=== PATIENT | male | born 1965 | race Two or more races ===

== ENCOUNTER 2016-09-12 12:03 | Emergency (ER) | payer MEDICARE, MEDICAID ==
[2016-09-12 12:20] VITALS: BP 134/92
--- NOTE | 2016-09-12 12:35 | EDM.PDOC ---
ED HPI GENERAL MEDICAL PROBLEM - General Chief Complaint: General Stated Complaint: COLD/COUGH Time Seen by Provider: 09/12/16 12:05 Source of Information: Reports: Patient History Limitations: Reports: No limitations - History of Present Illness INITIAL COMMENTS - FREE TEXT/NARRATIVE: History of present illness: [] Patient's had one day of coughing and body aches. He had similar symptoms last month the last couple weeks but then resolved. 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 Patient says he uses a mask while working. He denies any fevers or chills or any other symptoms. She has only been taking an allergy medicine he has an inhaler but has not used it. Review of systems: As per history of present illness and below otherwise all systems reviewed and negative. Past medical history: As per history of present illness and as reviewed below otherwise noncontributory. Surgical history: As per history of present illness and as reviewed below otherwise noncontributory. Social history: No reported history of drug or alcohol abuse. Family history: As per history of present illness and as reviewed below otherwise noncontributory. Physical exam: General: Well developed, well nourished in NAD HEENT: Atraumatic, normocephalic, pupils reactive, negative for conjunctival pallor or scleral icterus, mucous membranes moist, throat clear, neck supple, nontender, trachea midline. Lungs: Clear to auscultation, breath sounds equal bilaterally, chest nontender. No wheezing, guide or accessory muscle use Heart: S1S2, regular, negative for clicks, rubs, or JVD. Abdomen: Soft, nondistended, nontender. Negative for masses or hepatosplenomegaly. Negative for costovertebral tenderness. Pelvis: Stable nontender. Genitourinary: Deferred. Rectal: Deferred. Extremities: Atraumatic, negative for cords or calf pain. Neurovascular unremarkable. Neuro: Awake, alert, oriented. Cranial nerves II through XII unremarkable. Cerebellum unremarkable. Motor and sensory unremarkable throughout. Exam nonfocal. Diagnostics: [] Exam is normal no signs are normal Therapeutics: [] Impression: [] Viral URI Plan: [] Motrin for body aches, use her inhaler for cough and followup with primary care physician as needed. Definitive disposition and diagnosis as appropriate pending reevaluation and review of above. generalized pain Pain Score (Numeric/FACES): 8 - Related Data Allergies Allergy/AdvReac Type Severity Reaction Status Date / Time No Known Allergies Allergy Verified 09/12/16 12:20 Home Meds: Home Meds Gabapentin [Neurontin] 600 mg PO TID 12/02/13 [History] Insulin Regular, Human [NovoLIN R] 0 unit SQ WMBED 12/02/13 [History] Lisinopril 40 mg PO DAILY 12/02/13 [History] Methylphenidate HCl [Methylphenidate SR] 20 mg PO DAILY 12/02/13 [History] Morphine Sulfate [Morphine Sulfate ER] 60 mg PO BID 12/02/13 [History] Omeprazole 40 mg PO BIDAC 12/02/13 [History] oxyCODONE HCl/Acetaminophen [oxyCODONE-Acetaminophen 5-325] 1 tab PO Q4H PRN [History] Hydrochlorothiazide 12.5 mg PO DAILY 03/26/16 [History] metFORMIN [Glucophage XR] 500 mg PO BIDMEALS 03/26/16 [History] Past Medical History HEENT History: Reports: None Cardiovascular History: Reports: High cholesterol, Hypertension Respiratory History: Reports: Pneumonia, recurrent Gastrointestinal History: Reports: None Genitourinary History: Reports: None Musculoskeletal History: Reports: Arthritis, Back pain, chronic, Other (see below) Other Musculoskeletal History: Chronic pain Neurological History: Reports: Neuropathy, diabetic Psychiatric History: Reports: None Endocrine/Metabolic History: Reports: Diabetes, type II Hematologic History: Reports: None Immunologic History: Reports: None Oncologic (Cancer) History: Reports: None Dermatologic History: Reports: Cellulitis - Infectious Disease History Infectious Disease History: Reports: None - Past Surgical History Head Surgeries/Procedures: Reports: None HEENT Surgical History: Reports: None Cardiovascular Surgical History: Reports: Vascular surgery Respiratory Surgical History: Reports: None GI Surgical History: Reports: None Male Surgical History: Reports: None Endocrine Surgical History: Reports: None Neurological Surgical History: Reports: None Musculoskeletal Surgical History: Reports: Other (see below) Other Musculoskeletal Surgeries/Procedures:: Bilateral arms, legs Dermatological Surgical History: Reports: None Social & Family History - Family History Family Medical History: Noncontributory - Tobacco Use Smoking Status *Q: Current Some Day Smoker Years of Tobacco use: 8 Packs/Tins Daily: 0.1 Second Hand Smoke Exposure: Yes - Caffeine Use Caffeine Use: Reports: Coffee Other Caffeine Use: 1 cup every other day - Alcohol Use Days Per Week of Alcohol Use: 0 - Recreational Drug Use Recreational Drug Use: No ED ROS GENERAL - Review of Systems Review Of Systems: See Below (See history of present illness) ED EXAM, GENERAL - Physical Exam Exam: See Below (See history of present illness) Course - Vital Signs Last Recorded V/S: Last Vital Signs Temp 36.4 C 09/12/16 12:15 Pulse 77 09/12/16 12:15 Resp 16 09/12/16 12:15 BP 134/92 H 09/12/16 12:15 Pulse Ox 97 09/12/16 12:15 Departure - Departure Time of Disposition: 12:34 Disposition: Home, Self-Care 01 Condition: good Clinical Impression: Viral URI - Discharge Information Forms: ED Department Discharge Additional Instructions: The following information is given to patients seen in the emergency department who are being discharged to home. This information is to outline your options for follow-up care. We provide all patients seen in our emergency department with a follow-up referral. The need for follow-up, as well as the timing and circumstances, are variable depending upon the specifics of your emergency department visit. If you don't have a primary care physician on staff, we will provide you with a referral. We always advise you to contact your personal physician following an emergency department visit to inform them of the circumstance of the visit and for follow-up with them and/or the need for any referrals to a consulting specialist. The emergency department will also refer you to a specialist when appropriate. This referral assures that you have the opportunity for follow-up care with a specialist. All of these measure are taken in an effort to provide you with optimal care, which includes your follow-up. Under all circumstances we always encourage you to contact your private physician who remains a resource for coordinating your care. When calling for follow-up care, please make the office aware that this follow-up is from your recent emergency room visit. If for any reason you are refused follow-up, please contact the [facility] Emergency Department at and asked to speak to the emergency department charge nurse. Take Motrin for body aches, increase fluids and use her inhaler for cough. Followup with primary care physician as needed [facility] [address] [place] [phone]
== END 2016-09-12 12:44 | disposition home or self-care (01) ==
LOC: MW.ED 12:03
DX: J06.9 Acute upper respiratory infection, unspecified (principal); E78.00 Pure hypercholesterolemia, unspecified; I10 Essential (primary) hypertension; M19.90 Unspecified osteoarthritis, unspecified site; E11.40 Type 2 diabetes mellitus with diabetic neuropathy, unspecified; F17.210 Nicotine dependence, cigarettes, uncomplicated; Z87.01 Personal history of pneumonia (recurrent); Z79.899 Other long term (current) drug therapy; Z79.4 Long term (current) use of insulin; Z79.84 Long term (current) use of oral hypoglycemic drugs
CPT/HCPCS: 99282

== ENCOUNTER 2016-12-22 12:28 | Emergency (ER) | payer MEDICARE, MEDICAID ==
--- NOTE | 2016-12-22 12:47 | EDM.PDOC ---
ED HPI GENERAL MEDICAL PROBLEM - General Chief Complaint: Respiratory Problem Stated Complaint: COUGHING Time Seen by Provider: 12/22/16 12:46 Source of Information: Reports: Patient - History of Present Illness INITIAL COMMENTS - FREE TEXT/NARRATIVE: HISTORY AND PHYSICAL: History of present illness: Patient with productive cough for 2 weeks increasing in severity no fever nausea vomiting chills sweats, no chest pain shortness breath headache dizziness palpitation about a urine symptoms Review of systems: As per history of present illness and below otherwise all systems reviewed and negative. Past medical history: As per history of present illness and as reviewed below otherwise noncontributory. Surgical history: As per history of present illness and as reviewed below otherwise noncontributory. Social history: No reported history of drug or alcohol abuse. Family history: As per history of present illness and as reviewed below otherwise noncontributory. Physical exam: HEENT: Atraumatic, normocephalic, pupils reactive, negative for conjunctival pallor or scleral icterus, mucous membranes moist, throat clear, neck supple, nontender, trachea midline. Lungs: Clear to auscultation, breath sounds equal bilaterally, chest nontender. Heart: S1S2, regular, negative for clicks, rubs, or JVD. Abdomen: Soft, nondistended, nontender. Negative for masses or hepatosplenomegaly. Negative for costovertebral tenderness. Pelvis: Stable nontender. Genitourinary: Deferred. Rectal: Deferred. Extremities: Atraumatic, negative for cords or calf pain. Neurovascular unremarkable. Neuro: Awake, alert, oriented. Cranial nerves II through XII unremarkable. Cerebellum unremarkable. Motor and sensory unremarkable throughout. Exam nonfocal. Diagnostics: []Chest 2 views Therapeutics: []Z-Kyle 250 mg dosing HFA Impression: []Acute bronchitis Definitive disposition and diagnosis as appropriate pending reevaluation and review of above. Generalized Pain Score (Numeric/FACES): 5 - Related Data Allergies Allergy/AdvReac Type Severity Reaction Status Date / Time No Known Allergies Allergy Verified 12/22/16 12:37 Home Meds: Home Meds Gabapentin [Neurontin] 600 mg PO TID 12/02/13 [History] Insulin Regular, Human [NovoLIN R] 0 unit SQ WMBED 12/02/13 [History] Lisinopril 40 mg PO DAILY 12/02/13 [History] Methylphenidate HCl [Methylphenidate SR] 20 mg PO DAILY 12/02/13 [History] Morphine Sulfate [Morphine Sulfate ER] 60 mg PO BID 12/02/13 [History] Omeprazole 40 mg PO BIDAC 12/02/13 [History] oxyCODONE HCl/Acetaminophen [oxyCODONE-Acetaminophen 5-325] 1 tab PO Q4H PRN [History] Hydrochlorothiazide 12.5 mg PO DAILY 03/26/16 [History] metFORMIN [Glucophage XR] 500 mg PO BIDMEALS 03/26/16 [History] Past Medical History HEENT History: Reports: None Cardiovascular History: Reports: High Cholesterol, Hypertension Respiratory History: Reports: Pneumonia, Recurrent Gastrointestinal History: Reports: None Genitourinary History: Reports: None Musculoskeletal History: Reports: Arthritis, Back Pain, Chronic Other Musculoskeletal History: Chronic pain Neurological History: Reports: Neuropathy, Diabetic Psychiatric History: Reports: None Endocrine/Metabolic History: Reports: Diabetes, Type II Hematologic History: Reports: None Immunologic History: Reports: None Oncologic (Cancer) History: Reports: None Dermatologic History: Reports: Cellulitis - Infectious Disease History Infectious Disease History: Reports: None - Past Surgical History Head Surgeries/Procedures: Reports: None HEENT Surgical History: Reports: None Cardiovascular Surgical History: Reports: Vascular Surgery GI Surgical History: Reports: None Male Surgical History: Reports: None Musculoskeletal Surgical History: Reports: Other (See Below) Other Musculoskeletal Surgeries/Procedures:: Hx of 32 sugeries, titanium in bilateral knees Dermatological Surgical History: Reports: None Social & Family History - Family History Family Medical History: Noncontributory - Tobacco Use Smoking Status *Q: Never Smoker Years of Tobacco use: 8 Packs/Tins Daily: 0.1 Second Hand Smoke Exposure: Yes - Caffeine Use Caffeine Use: Reports: None Other Caffeine Use: 1 cup every other day - Alcohol Use Days Per Week of Alcohol Use: 0 - Recreational Drug Use Recreational Drug Use: No ED ROS GENERAL - Review of Systems Review Of Systems: ROS reveals no pertinent complaints other than HPI. ED EXAM, GENERAL - Physical Exam Exam: See Below Course - Vital Signs Last Recorded V/S: Last Vital Signs Temp 36.2 C 12/22/16 12:40 Pulse 72 12/22/16 12:40 Resp 16 12/22/16 12:40 BP 140/94 H 12/22/16 12:40 Pulse Ox 94 L 12/22/16 12:40 - Orders/Labs/Meds Orders: Active Orders 24 hr Category Date Time Status Chest 2V [CR] Stat Exams 12/22/16 12:41 Taken Departure - Departure Time of Disposition: 14:22 Disposition: Home, Self-Care 01 Condition: Good Clinical Impression: Acute bronchitis - Discharge Information Forms: ED Department Discharge Additional Instructions: Medication as prescribed Return if symptoms persist or worsen Follow-up with primary care as needed The following information is given to patients seen in the emergency department who are being discharged to home. This information is to outline your options for follow-up care. We provide all patients seen in our emergency department with a follow-up referral. The need for follow-up, as well as the timing and circumstances, are variable depending upon the specifics of your emergency department visit. If you don't have a primary care physician on staff, we will provide you with a referral. We always advise you to contact your personal physician following an emergency department visit to inform them of the circumstance of the visit and for follow-up with them and/or the need for any referrals to a consulting specialist. The emergency department will also refer you to a specialist when appropriate. This referral assures that you have the opportunity for follow-up care with a specialist. All of these measure are taken in an effort to provide you with optimal care, which includes your follow-up. Under all circumstances we always encourage you to contact your private physician who remains a resource for coordinating your care. When calling for follow-up care, please make the office aware that this follow-up is from your recent emergency room visit. If for any reason you are refused follow-up, please contact the [facility] emergency department at and asked to speak to the emergency department charge nurse. - My Orders Last 24 Hours: My Active Orders 12/22/16 12:41 Chest 2V [CR] Stat - Assessment/Plan Last 24 Hours: My Active Orders 12/22/16 12:41 Chest 2V [CR] Stat
[2016-12-22 14:41] VITALS: BP 141/86
--- NOTE | 2016-12-24 14:52 | CR ---
EXAM DATE: 12/22/16 PATIENT'S AGE: 50 Patient: ENIO RICO Facility: [place], [place] Site . Site : 1965 Study: XRay Chest [id number]/19/2017 1:01:10 PM Ordering Physician: Jacinta Liz Final Report: Indication: Pain, shortness of breath. Comparison: None. Findings: The bony thorax and soft tissue structures are intact. Mild thoracic aortic ectasia is noted. The cardiac and mediastinal silhouettes are otherwise normal. The pulmonary vascular is normal. The lungs are free of infiltrate and there are no pleural effusions. Impression: No active pulmonary disease. Dictated by Maude Aguirre MD @ Dec 22 2016 1:04PM (Electronic Signature) Report Signed by Proxy. [facility] Luis
== END 2016-12-22 14:35 | disposition home or self-care (01) ==
LOC: MW.ED 12:28
DX: J20.9 Acute bronchitis, unspecified (principal); E78.00 Pure hypercholesterolemia, unspecified; I10 Essential (primary) hypertension; E11.40 Type 2 diabetes mellitus with diabetic neuropathy, unspecified; Z79.4 Long term (current) use of insulin; Z79.84 Long term (current) use of oral hypoglycemic drugs; Z79.899 Other long term (current) drug therapy; Z87.01 Personal history of pneumonia (recurrent)
CPT/HCPCS: 71020; 71020-26; 99282; 99283

== ENCOUNTER 2017-11-08 16:40 | Observation (INO) | payer MEDICARE, MEDICAID ==
[2017-11-08] MEDS ORDERED: Sodium Chloride 0.9% 1,000 ML IV ONE (16:46)
[2017-11-08] MEDS ORDERED: Aspirin 81 MG Tab.Chew PO ONE (16:46)
--- NOTE | 2017-11-08 16:47 | EDM.PDOC ---
ED HPI GENERAL MEDICAL PROBLEM - General Stated Complaint: BACK PAIN/LT ARM PAIN Time Seen by Provider: 11/08/17 16:47 Source of Information: Reports: Patient - History of Present Illness INITIAL COMMENTS - FREE TEXT/NARRATIVE: HISTORY AND PHYSICAL: History of present illness: []Patient is been doing some lifting and work in his yard over the last week he complains of back pain 6 out of 10 worsen by movement and lifting Today he has had chest pain component and left shoulder pain he rates 3 out of 5 not associated with diaphoresis or shortness of breath, chest pain is 0 out of 10 at current below he did take 4 nitroglycerin and is hypotensive he is alert interactive in no distress at current No fever nausea vomiting diarrhea constipation chest pain shortness breath headache dizziness or palpitation no bowel or urine symptoms Street of MD 1-2 years prior Diabetes on metformin Review of systems: As per history of present illness and below otherwise all systems reviewed and negative. Past medical history: As per history of present illness and as reviewed below otherwise noncontributory. Surgical history: As per history of present illness and as reviewed below otherwise noncontributory. Social history: No reported history of drug or alcohol abuse. Family history: As per history of present illness and as reviewed below otherwise noncontributory. Physical exam: HEENT: Atraumatic, normocephalic, pupils reactive, negative for conjunctival pallor or scleral icterus, mucous membranes moist, throat clear, neck supple, nontender, trachea midline. Lungs: Clear to auscultation, breath sounds equal bilaterally, chest nontender. Heart: S1S2, regular, negative for clicks, rubs, or JVD. Abdomen: Soft, nondistended, nontender. Negative for masses or hepatosplenomegaly. Negative for costovertebral tenderness. Pelvis: Stable nontender. Genitourinary: Deferred. Rectal: Deferred. Extremities: Atraumatic, negative for cords or calf pain. Neurovascular unremarkable. Neuro: Awake, alert, oriented. Cranial nerves II through XII unremarkable. Cerebellum unremarkable. Motor and sensory unremarkable throughout. Exam nonfocal. Diagnostics: [CBC CMP UA troponin lipase EKG Chest 1 view ] Therapeutics: [ will saline bolus Aspirin 324 mg chewable Patient had taken 4 sublingual nitroglycerin prior to arrival ] Impression: [ hypotension ] renal insufficiency , metformin contraindicated Muscle spasm right lumb ar/thoraco paraspinous muscles History of previous MD Definitive disposition and diagnosis as appropriate pending reevaluation and review of above. chest Pain Score (Numeric/FACES): 7 - Related Data Allergies Allergy/AdvReac Type Severity Reaction Status Date / Time No Known Allergies Allergy Verified 11/08/17 16:55 Home Meds: Home Meds Aspirin [Ecotrin] 325 mg PO DAILY 11/08/17 [History] Carvedilol 6.25 mg PO BID 11/08/17 [History] Celecoxib [CeleBREX] 200 mg PO BID PRN 11/08/17 [History] Clopidogrel [Plavix] 75 mg PO DAILY 11/08/17 [History] Gabapentin [Neurontin] 800 mg PO TID 11/08/17 [History] Hydrochlorothiazide 25 mg PO DAILY 11/08/17 [History] Ibuprofen [Motrin] 600 mg PO QID PRN 11/08/17 [History] Lisinopril 20 mg PO DAILY 11/08/17 [History] Methylphenidate HCl [Methylphenidate ER] 54 mg PO DAILY 11/08/17 [History] metFORMIN [Glucophage] 850 mg PO BID 11/08/17 [History] Past Medical History HEENT History: Reports: None Cardiovascular History: Reports: High Cholesterol, Hypertension Respiratory History: Reports: Pneumonia, Recurrent Gastrointestinal History: Reports: None Genitourinary History: Reports: None Musculoskeletal History: Reports: Arthritis, Back Pain, Chronic Other Musculoskeletal History: Chronic pain Neurological History: Reports: Neuropathy, Diabetic Psychiatric History: Reports: None Endocrine/Metabolic History: Reports: Diabetes, Type II Hematologic History: Reports: None Immunologic History: Reports: None Oncologic (Cancer) History: Reports: None Dermatologic History: Reports: Cellulitis - Infectious Disease History Infectious Disease History: Reports: None - Past Surgical History Head Surgeries/Procedures: Reports: None HEENT Surgical History: Reports: None Cardiovascular Surgical History: Reports: Vascular Surgery GI Surgical History: Reports: None Male Surgical History: Reports: None Musculoskeletal Surgical History: Reports: Other (See Below) Other Musculoskeletal Surgeries/Procedures:: Hx of 32 sugeries, titanium in bilateral knees Dermatological Surgical History: Reports: None Social & Family History - Family History Family Medical History: Noncontributory - Caffeine Use Caffeine Use: Reports: None Other Caffeine Use: 1 cup every other day ED ROS GENERAL - Review of Systems Review Of Systems: See Below ED EXAM, GENERAL - Physical Exam Exam: See Below Course - Vital Signs Last Recorded V/S: Last Vital Signs Temp 97.0 F 11/08/17 16:55 Pulse 88 11/08/17 16:55 Resp 18 11/08/17 16:55 BP 83/55 L 11/08/17 17:13 Pulse Ox 93 L 11/08/17 16:55 - Orders/Labs/Meds Orders: Active Orders 24 hr Category Date Time Status EKG Documentation Completion [RC] STAT Care 11/08/17 16:46 Active Chest 1V Frontal [CR] Stat Exams 11/08/17 16:46 Taken CPK [CREATINE KINASE,CK] [CHEM] Stat Lab 11/08/17 17:54 Ordered UA W/MICROSCOPIC [URIN] Stat Lab 11/08/17 16:46 Ordered Labs: Laboratory Tests 11/08/17 11/08/17 Range/Units 16:55 16:55 WBC 17.05 H (4.0-11.0) K/uL RBC 5.15 (4.50-5.90) M/uL Hgb 15.8 (13.0-17.0) g/dL Hct 45.6 (38.0-50.0) % MCV 88.5 (80.0-98.0) fL MCH 30.7 (27.0-32.0) pg MCHC 34.6 (31.0-37.0) g/dL RDW Std Deviation 42.7 (28.0-62.0) fl RDW Coeff of Lianne 13 (11.0-15.0) % Plt Count 226 (150-400) K/uL MPV 11.60 (7.40-12.00) fL Neut % (Auto) 71.5 (48.0-80.0) % Lymph % (Auto) 16.3 (16.0-40.0) % [place] % (Auto) 6.9 (0.0-15.0) % Eos % (Auto) 5.2 (0.0-7.0) % Baso % (Auto) 0.1 (0.0-1.5) % Neut # (Auto) 12.2 H (1.4-5.7) K/uL Lymph # (Auto) 2.8 H (0.6-2.4) K/uL [place] # (Auto) 1.2 H (0.0-0.8) K/uL Eos # (Auto) 0.9 H (0.0-0.7) K/uL Baso # (Auto) 0.0 (0.0-0.1) K/uL Nucleated RBC % 0.0 /100WBC Nucleated RBCs # 0 K/uL Sodium 137 (136-148) mmol/L Potassium 4.3 (3.5-5.1) mmol/L Chloride 100 (98-107) mmol/L Carbon Dioxide 22.0 (21.0-32.0) mmol/L BUN 36 H (7.0-18.0) mg/dL Creatinine 2.9 H (0.8-1.3) mg/dL Est Cr Clr Drug Dosing 29.46 mL/min Estimated GFR (MDRD) 22.9 ml/min Glucose 256 H (74-106) mg/dL Calcium 8.9 (8.5-10.1) mg/dL Total Bilirubin 1.3 H (0.2-1.0) mg/dL AST 18 (15-37) IU/L ALT 39 (14-63) IU/L Alkaline Phosphatase 92 (46-116) U/L Troponin I < 0.050 (0.000-0.056) ng/mL Total Protein 7.6 (6.4-8.2) g/dL Albumin 4.3 (3.4-5.0) g/dL Globulin 3.3 (2.0-3.5) g/dL Albumin/Globulin Ratio 1.3 (1.3-2.8) Lipase 104 (73-393) U/L Meds: Medications Discontinued Medications Generic Name Dose Route Start Last Admin Trade Name Freq PRN Reason Stop Dose Admin Aspirin 324 mg 11/08/17 16:46 11/08/17 17:00 Aspirin PO 11/08/17 16:47 324 mg ONETIME ONE Administration Sodium Chloride 1,000 mls @ 999 mls/hr 11/08/17 16:46 11/08/17 17:00 Normal Saline IV 11/08/17 17:46 999 mls/hr STAT ONE Administration Departure - Departure Time of Disposition: 17:55 Disposition: Refer to Observation Condition: Poor Clinical Impression: Hypotension, Renal insufficiency, Dehydration, Paraspinal muscle spasm, Atypical chest pain - Discharge Information Referrals: PCP,None [Primary Care Provider] - - My Orders Last 24 Hours: My Active Orders 11/08/17 16:46 EKG Documentation Completion [RC] STAT Chest 1V Frontal [CR] Stat UA W/MICROSCOPIC [URIN] Stat 11/08/17 17:54 CPK [CREATINE KINASE,CK] [CHEM] Stat - Assessment/Plan Last 24 Hours: My Active Orders 11/08/17 16:46 EKG Documentation Completion [RC] STAT Chest 1V Frontal [CR] Stat UA W/MICROSCOPIC [URIN] Stat 11/08/17 17:54 CPK [CREATINE KINASE,CK] [CHEM] Stat
[2017-11-08 17:34] LABS: CHLORIDE,CL 100 mmol/L (98-107); SODIUM,NA 137 mmol/L (136-148)
[2017-11-08] MEDS: Sodium Chloride 0.9% 1,000 ML IV SCH (18:25)
--- NOTE | 2017-11-08 19:29 | CR ---
EXAM DATE: 11/08/17 PATIENT'S AGE: 51 Patient: ENIO RICO Facility: [place], [place] Site . Site : 1965 Study: XRay Chest [id number]/6/2018 5:09:14 PM Ordering Physician: Jacinta Liz Final Report: INDICATION: chest pain, TECHNIQUE: Chest 1 view COMPARISON: December 22, 2016 FINDINGS: Cardiovascular and mediastinum: Heart size and vasculature are normal in caliber and appearance. Mediastinum is within normal limits. Lungs and pleural space: No focal consolidation. No sign of pleural effusion. No pneumothorax. Bones and soft tissues: No significant findings. IMPRESSION: No acute cardiopulmonary disease. Dictated by Tian Gonzales MD @ 11/08/2017 5:31:52 PM Dictated by: Tian Gonzales MD @ 11/08/2017 17:32:04 (Electronic Signature) Report Signed by Proxy. [facility]J Luis
[2017-11-08] MEDS ORDERED: Acetaminophen 325 MG Tab PO PRN (22:05)
[2017-11-08] MEDS ORDERED: Ondansetron 4 MG/2 ML SDV IVPUSH PRN (22:05)
--- NOTE | 2017-11-08 22:14 | PCM.HP ---
H&P History of Present Illness - General Date of Service: 11/08/17 Admit Problem/Dx: Admission Diagnosis/Problem Admission Diagnosis/Problem Atypical chest pain - History of Present Illness Initial Comments - Free Text/Narative: 51 yo male with pmh of DM, CAD, HTN who presents to the ED with chest pain. Patient has a history of chronic back pain for which he takes opiods. While lifting at work he developed acute pain in the back that radiated to the chest. It was also associated with diaphoresis. He took 4 nitros prior to coming to the ED. Initial EKG and troponin was negative in the ED. chest Pain Score (Numeric/FACES): 7 Back Pain Score (Numeric/FACES): 7 - Related Data Allergies/Adverse Reactions: Allergies Allergy/AdvReac Type Severity Reaction Status Date / Time No Known Allergies Allergy Verified 11/08/17 16:55 Home Medications: Home Meds Aspirin [Ecotrin] 325 mg PO DAILY 11/08/17 [History] Carvedilol 6.25 mg PO BID 11/08/17 [History] Clopidogrel Bisulfate [Clopidogrel] 75 mg PO DAILY 11/08/17 [History] Gabapentin [Neurontin] 800 mg PO TID 11/08/17 [History] Hydrochlorothiazide 25 mg PO DAILY 11/08/17 [History] Insulin Regular, Human [NovoLIN R] 0 unit SUBCUT BIDAC 11/08/17 [History] Krill Oil/Lucile-3/Dha/Epa [Lucile-3 Krill Oil Softgel] 350 mg PO DAILY 11/08/17 [ History] Lisinopril 20 mg PO DAILY 11/08/17 [History] Methylphenidate HCl 20 mg PO DAILY 11/08/17 [History] Methylphenidate HCl [Methylphenidate ER] 54 mg PO DAILY 11/08/17 [History] Mometasone/Formoterol [Dulera 100-5 MCG] 1 puff IH DAILY PRN 11/08/17 [History] Morphine Sulfate [Morphine Sulfate ER] 15 mg PO TID 11/08/17 [History] atorvaSTATin Calcium [Atorvastatin Calcium] 40 mg PO DAILY 11/08/17 [History] metFORMIN [Glucophage] 850 mg PO BID 11/08/17 [History] oxyCODONE 5 mg PO Q6H PRN 11/08/17 [History] Levofloxacin [Levaquin] 500 mg PO Q24H #5 tablet 11/10/17 [Rx] Past Medical History HEENT History: Reports: Other (See Below) Other HEENT History: broken nose, sinus issues Cardiovascular History: Reports: High Cholesterol, Hypertension, [place] Respiratory History: Reports: Asthma, Pneumonia, Recurrent Gastrointestinal History: Reports: None Genitourinary History: Reports: None Musculoskeletal History: Reports: Arthritis, Back Pain, Chronic, Fracture Other Musculoskeletal History: Chronic pain Neurological History: Reports: Concussion, Neuropathy, Diabetic Psychiatric History: Reports: None Endocrine/Metabolic History: Reports: Diabetes, Type II Hematologic History: Reports: None Immunologic History: Reports: None Oncologic (Cancer) History: Reports: None Dermatologic History: Reports: Cellulitis - Infectious Disease History Infectious Disease History: Reports: None Other Infectious Disease History: MRSA - Past Surgical History HEENT Surgical History: Reports: None Cardiovascular Surgical History: Reports: Vascular Surgery Respiratory Surgical History: Reports: None GI Surgical History: Reports: None Male Surgical History: Reports: Vasectomy Neurological Surgical History: Reports: None Musculoskeletal Surgical History: Reports: Other (See Below) Other Musculoskeletal Surgeries/Procedures:: Hx of 32 sugeries, titanium in bilateral knees Dermatological Surgical History: Reports: None Social & Family History - Family History Family Medical History: Noncontributory - Tobacco Use Smoking Status *Q: Current Some Day Smoker Years of Tobacco use: 10 Packs/Tins Daily: 0.1 - Caffeine Use Caffeine Use: Reports: Coffee, Soda Other Caffeine Use: 1 cup every other day - Alcohol Use Date of Last Drink: 11/07/17 - Recreational Drug Use Recreational Drug Use: No H&P Review of Systems - Review of Systems: Review Of Systems: ROS reveals no pertinent complaints other than HPI. Exam - Exam Exam: See Below - Vital Signs Vital Signs: Last Vital Signs Temp 36.3 C 11/08/17 19:00 Pulse 88 11/08/17 16:55 Resp 18 11/08/17 16:55 BP 94/55 L 11/08/17 18:19 Pulse Ox 93 L 11/08/17 16:55 Weight: 100.8 kg - Exam General: Alert, Oriented HEENT: Mucosa Moist & [place] Lungs: Clear to Auscultation, Normal Respiratory Effort Cardiovascular: Regular Rate, Regular Rhythm GI/Abdominal Exam: Normal Bowel Sounds, Soft, Non-Tender Extremities: Non-Tender, No Pedal Edema - Patient Data Lab Results Last 24 hrs: Laboratory Results - last 24 hr 11/08/17 11/08/17 11/08/17 Range/Units 16:47 16:55 16:55 WBC 17.05 H (4.0-11.0) K/uL RBC 5.15 (4.50-5.90) M/uL Hgb 15.8 (13.0-17.0) g/dL Hct 45.6 (38.0-50.0) % MCV 88.5 (80.0-98.0) fL MCH 30.7 (27.0-32.0) pg MCHC 34.6 (31.0-37.0) g/dL RDW Std Deviation 42.7 (28.0-62.0) fl RDW Coeff of Lianne 13 (11.0-15.0) % Plt Count 226 (150-400) K/uL MPV 11.60 (7.40-12.00) fL Neut % (Auto) 71.5 (48.0-80.0) % Lymph % (Auto) 16.3 (16.0-40.0) % [place] % (Auto) 6.9 (0.0-15.0) % Eos % (Auto) 5.2 (0.0-7.0) % Baso % (Auto) 0.1 (0.0-1.5) % Neut # (Auto) 12.2 H (1.4-5.7) K/uL Lymph # (Auto) 2.8 H (0.6-2.4) K/uL [place] # (Auto) 1.2 H (0.0-0.8) K/uL Eos # (Auto) 0.9 H (0.0-0.7) K/uL Baso # (Auto) 0.0 (0.0-0.1) K/uL Nucleated RBC % 0.0 /100WBC Nucleated RBCs # 0 K/uL Sodium 137 (136-148) mmol/L Potassium 4.3 (3.5-5.1) mmol/L Chloride 100 (98-107) mmol/L Carbon Dioxide 22.0 (21.0-32.0) mmol/L BUN 36 H (7.0-18.0) mg/dL Creatinine 2.9 H (0.8-1.3) mg/dL Est Cr Clr Drug Dosing 29.46 mL/min Estimated GFR (MDRD) 22.9 ml/min Glucose 256 H (74-106) mg/dL Calcium 8.9 (8.5-10.1) mg/dL Total Bilirubin 1.3 H (0.2-1.0) mg/dL AST 18 (15-37) IU/L ALT 39 (14-63) IU/L Alkaline Phosphatase 92 (46-116) U/L Creatine Kinase 135 (26-308) U/L Troponin I < 0.050 (0.000-0.056) ng/mL Total Protein 7.6 (6.4-8.2) g/dL Albumin 4.3 (3.4-5.0) g/dL Globulin 3.3 (2.0-3.5) g/dL Albumin/Globulin Ratio 1.3 (1.3-2.8) Lipase 104 (73-393) U/L Result Diagrams: 11/10/17 05:47 11/10/17 05:47 Problem List Initiated/Reviewed/Updated: Yes Orders Last 24hrs: Active Orders 24 hr Category Date Time Status Admission Status [Patient Status] [ADT] Stat ADT 11/08/17 17:56 Active Blood Glucose Check, Bedside [RC] TIDMEALS Care 11/08/17 22:05 Ordered Oxygen Therapy [RC] PRN Care 11/08/17 22:05 Ordered Up ad Natacha [RC] ASDIRECTED Care 11/08/17 22:05 Ordered VTE/DVT Education [RC] PER UNIT ROUTINE Care 11/08/17 22:05 Ordered Vital Signs [RC] Q4H Care 11/08/17 22:05 Ordered [place] [employer] Diet [DIET] Diet 11/08/17 Breakfast Ordered BASIC METABOLIC PANEL,BMP [CHEM] AM Lab 11/09/17 05:11 Ordered CBC W/O DIFF,HEMOGRAM [HEME] AM Lab 11/09/17 05:11 Ordered TROPONIN I [CHEM] Q6H Lab 11/08/17 23:00 Ordered TROPONIN I [CHEM] Q6H Lab 11/09/17 05:00 Ordered UA W/MICROSCOPIC [URIN] Stat Lab 11/08/17 16:46 Ordered Acetaminophen [Tylenol] Med 11/08/17 22:05 Ordered 650 mg PO Q4H PRN Carvedilol [Coreg] Med 11/09/17 09:00 Ordered 6.25 mg PO BID Clopidogrel [Plavix] Med 11/09/17 09:00 Ordered 75 mg PO DAILY Gabapentin [Neurontin] Med 11/09/17 06:00 Ordered 800 mg PO TID Heparin Sodium Med 11/08/17 22:15 Ordered 5,000 units SUBCUT Q12H Hydrochlorothiazide Med 11/09/17 09:00 Ordered 25 mg PO DAILY Morphine [MS Contin] Med 11/09/17 06:00 Ordered 15 mg PO TID Ondansetron [Zofran] Med 11/08/17 22:05 Ordered 4 mg IVPUSH Q4H PRN Sodium Chloride 0.9% [Normal Saline] 1,000 ml Med 11/08/17 18:30 Active IV ASDIRECTED atorvaSTATin [Lipitor] Med 11/09/17 09:00 Ordered 40 mg PO DAILY oxyCODONE Med 11/08/17 22:01 Ordered 5 mg PO Q6H PRN Sequential Compression Device [OM.PC] Per Unit Routine Oth 11/08/17 22:05 Ordered Resuscitation Status Routine Resus Stat 11/08/17 22:05 Ordered Medication Orders Acetaminophen (Tylenol) 650 mg PO Q4H PRN PRN Reason: Pain (Mild 1-3)/fever Atorvastatin Calcium (Lipitor) 40 mg PO DAILY [facility] Carvedilol (Coreg) 6.25 mg PO BID [facility] Clopidogrel Bisulfate (Plavix) 75 mg PO DAILY [facility] Gabapentin (Neurontin) 800 mg PO TID [facility] Heparin Sodium (Porcine) (Heparin Sodium) 5,000 units SUBCUT Q12H [facility] Hydrochlorothiazide (Hydrochlorothiazide) 25 mg PO DAILY [facility] Sodium Chloride (Normal Saline) 1,000 mls @ 150 mls/hr IV ASDIRECTED [facility] Last Admin: 11/08/17 18:25 Dose: 150 mls/hr Morphine Sulfate (Ms Contin) 15 mg PO TID [facility] Ondansetron HCl (Zofran) 4 mg IVPUSH Q4H PRN PRN Reason: Nausea Oxycodone HCl (Oxycodone) 5 mg PO Q6H PRN PRN Reason: Pain Assessment/Plan Comment:: 51 yo male presented with chest pain. found to have a leukocytosis and acute kidney injury likely from dehydration. We will hydrate with IV fluids and obtain a UA. We will trend cardiac enzymes and resume his home dosing of narcotics for his chronic back pain.
[2017-11-08] MEDS: Heparin Sodium 5,000 Units/ML Vial SUBCUT SCH (22:55)
[2017-11-08] MEDS: oxyCODONE 5 MG Tab PO PRN (22:55)
[2017-11-09] MEDS: Sodium Chloride 0.9% 1,000 ML IV SCH ×4 (00:36→22:07)
[2017-11-09] MEDS: Gabapentin 800 MG Tab PO SCH ×3 (06:28→21:48)
[2017-11-09] MEDS: Morphine 15 MG Tab.ER PO SCH ×3 (06:28→21:48)
[2017-11-09] MEDS: oxyCODONE 5 MG Tab PO PRN ×2 (07:11→17:00)
[2017-11-09] MEDS: Carvedilol 6.25 MG Tab PO SCH ×2 (08:00→21:08)
[2017-11-09] MEDS: Clopidogrel 75 MG Tab PO SCH (08:01)
[2017-11-09] MEDS: Hydrochlorothiazide 25 MG Tab PO SCH (08:01)
[2017-11-09] MEDS: atorvaSTATin 40 MG Tab PO SCH (08:01)
[2017-11-09] MEDS: Heparin Sodium 5,000 Units/ML Vial SUBCUT SCH ×2 (09:20→21:48)
--- NOTE | 2017-11-09 12:55 | PCM.PN ---
- General Info Date of Service: 11/09/17 - Review of Systems Systems Review Comment:: reports some chills this morning, denies any dysuria, back pain improved, no chest pain. - Patient Data Vitals - Most Recent: Last Vital Signs Temp 36.2 C 11/09/17 12:00 Pulse 69 11/09/17 05:00 Resp 16 11/09/17 12:00 BP 113/69 11/09/17 12:00 Pulse Ox 96 11/09/17 12:00 Weight - Most Recent: 100.8 kg I&O - Last 24 Hours: Intake & Output 11/08/17 11/09/17 11/09/17 22:59 06:59 14:59 Intake Total 2223 240 Output Total 180 500 Balance 2043 -260 Lab Results Last 24 Hours: Laboratory Results - last 24 hr 11/08/17 11/08/17 11/08/17 Range/Units 16:47 16:55 16:55 WBC 17.05 H (4.0-11.0) K/uL RBC 5.15 (4.50-5.90) M/uL Hgb 15.8 (13.0-17.0) g/dL Hct 45.6 (38.0-50.0) % MCV 88.5 (80.0-98.0) fL MCH 30.7 (27.0-32.0) pg MCHC 34.6 (31.0-37.0) g/dL RDW Std Deviation 42.7 (28.0-62.0) fl RDW Coeff of Lianne 13 (11.0-15.0) % Plt Count 226 (150-400) K/uL MPV 11.60 (7.40-12.00) fL Neut % (Auto) 71.5 (48.0-80.0) % Lymph % (Auto) 16.3 (16.0-40.0) % [place] % (Auto) 6.9 (0.0-15.0) % Eos % (Auto) 5.2 (0.0-7.0) % Baso % (Auto) 0.1 (0.0-1.5) % Neut # (Auto) 12.2 H (1.4-5.7) K/uL Lymph # (Auto) 2.8 H (0.6-2.4) K/uL [place] # (Auto) 1.2 H (0.0-0.8) K/uL Eos # (Auto) 0.9 H (0.0-0.7) K/uL Baso # (Auto) 0.0 (0.0-0.1) K/uL Nucleated RBC % 0.0 /100WBC Nucleated RBCs # 0 K/uL Sodium 137 (136-148) mmol/L Potassium 4.3 (3.5-5.1) mmol/L Chloride 100 (98-107) mmol/L Carbon Dioxide 22.0 (21.0-32.0) mmol/L BUN 36 H (7.0-18.0) mg/dL Creatinine 2.9 H (0.8-1.3) mg/dL Est Cr Clr Drug Dosing 29.46 mL/min Estimated GFR (MDRD) 22.9 ml/min Glucose 256 H (74-106) mg/dL POC Glucose (60-110) mg/dL Calcium 8.9 (8.5-10.1) mg/dL Total Bilirubin 1.3 H (0.2-1.0) mg/dL AST 18 (15-37) IU/L ALT 39 (14-63) IU/L Alkaline Phosphatase 92 (46-116) U/L Creatine Kinase 135 (26-308) U/L Troponin I < 0.050 (0.000-0.056) ng/mL Total Protein 7.6 (6.4-8.2) g/dL Albumin 4.3 (3.4-5.0) g/dL Globulin 3.3 (2.0-3.5) g/dL Albumin/Globulin Ratio 1.3 (1.3-2.8) Lipase 104 (73-393) U/L Urine Color Urine Appearance Urine pH (5.0-8.0) Ur Specific [place] (1.001-1.035) Urine Protein (NEGATIVE) mg/dL Urine Glucose (UA) (NEGATIVE) mg/dL Urine Ketones (NEGATIVE) mg/dL Urine Occult Blood (NEGATIVE) Urine Nitrite (NEGATIVE) Urine Bilirubin (NEGATIVE) Urine Urobilinogen (<2.0) EU/dL Ur Leukocyte Esterase (NEGATIVE) Urine RBC (0-2/HPF) Urine WBC (0-5/HPF) Ur Epithelial Cells (NONE-FEW) Ur Renal Epithelial Cell Calcium Oxalate Crystal (NEGATIVE) Urine Bacteria (NEGATIVE) Fine Granular Casts (NEGATIVE) Coarse Granular Casts (NEGATIVE) 11/08/17 11/08/17 11/08/17 Range/Units 19:33 23:00 23:31 WBC (4.0-11.0) K/uL RBC (4.50-5.90) M/uL Hgb (13.0-17.0) g/dL Hct (38.0-50.0) % MCV (80.0-98.0) fL MCH (27.0-32.0) pg MCHC (31.0-37.0) g/dL RDW Std Deviation (28.0-62.0) fl RDW Coeff of Lianne (11.0-15.0) % Plt Count (150-400) K/uL MPV (7.40-12.00) fL Neut % (Auto) (48.0-80.0) % Lymph % (Auto) (16.0-40.0) % [place] % (Auto) (0.0-15.0) % Eos % (Auto) (0.0-7.0) % Baso % (Auto) (0.0-1.5) % Neut # (Auto) (1.4-5.7) K/uL Lymph # (Auto) (0.6-2.4) K/uL [place] # (Auto) (0.0-0.8) K/uL Eos # (Auto) (0.0-0.7) K/uL Baso # (Auto) (0.0-0.1) K/uL Nucleated RBC % /100WBC Nucleated RBCs # K/uL Sodium (136-148) mmol/L Potassium (3.5-5.1) mmol/L Chloride (98-107) mmol/L Carbon Dioxide (21.0-32.0) mmol/L BUN (7.0-18.0) mg/dL Creatinine (0.8-1.3) mg/dL Est Cr Clr Drug Dosing mL/min Estimated GFR (MDRD) ml/min Glucose (74-106) mg/dL POC Glucose 198 H (60-110) mg/dL Calcium (8.5-10.1) mg/dL Total Bilirubin (0.2-1.0) mg/dL AST (15-37) IU/L ALT (14-63) IU/L Alkaline Phosphatase (46-116) U/L Creatine Kinase (26-308) U/L Troponin I < 0.050 (0.000-0.056) ng/mL Total Protein (6.4-8.2) g/dL Albumin (3.4-5.0) g/dL Globulin (2.0-3.5) g/dL Albumin/Globulin Ratio (1.3-2.8) Lipase (73-393) U/L Urine Color YELLOW Urine Appearance SLT CLOUDY Urine pH 5.5 (5.0-8.0) Ur Specific [place] >= 1.030 (1.001-1.035) Urine Protein 30 (NEGATIVE) mg/dL Urine Glucose (UA) NEGATIVE (NEGATIVE) mg/dL Urine Ketones TRACE H (NEGATIVE) mg/dL Urine Occult Blood NEGATIVE (NEGATIVE) Urine Nitrite NEGATIVE (NEGATIVE) Urine Bilirubin NEGATIVE (NEGATIVE) Urine Urobilinogen 0.2 (<2.0) EU/dL Ur Leukocyte Esterase NEGATIVE (NEGATIVE) Urine RBC 1-3 (0-2/HPF) Urine WBC 3-7 (0-5/HPF) Ur Epithelial Cells RARE (NONE-FEW) Ur Renal Epithelial Cell RARE Calcium Oxalate Crystal OCCASIONAL (NEGATIVE) Urine Bacteria 1+ H (NEGATIVE) Fine Granular Casts 0-3 (NEGATIVE) Coarse Granular Casts 0-5 (NEGATIVE) 11/09/17 11/09/17 11/09/17 Range/Units 05:40 05:40 05:40 WBC 11.03 H (4.0-11.0) K/uL RBC 4.55 (4.50-5.90) M/uL Hgb 13.7 (13.0-17.0) g/dL Hct 41.1 (38.0-50.0) % MCV 90.3 (80.0-98.0) fL MCH 30.1 (27.0-32.0) pg MCHC 33.3 (31.0-37.0) g/dL RDW Std Deviation 43.5 (28.0-62.0) fl RDW Coeff of Lianne 13 (11.0-15.0) % Plt Count 163 (150-400) K/uL MPV 11.40 (7.40-12.00) fL Neut % (Auto) (48.0-80.0) % Lymph % (Auto) (16.0-40.0) % [place] % (Auto) (0.0-15.0) % Eos % (Auto) (0.0-7.0) % Baso % (Auto) (0.0-1.5) % Neut # (Auto) (1.4-5.7) K/uL Lymph # (Auto) (0.6-2.4) K/uL [place] # (Auto) (0.0-0.8) K/uL Eos # (Auto) (0.0-0.7) K/uL Baso # (Auto) (0.0-0.1) K/uL Nucleated RBC % 0.0 /100WBC Nucleated RBCs # 0 K/uL Sodium 137 (136-148) mmol/L Potassium 4.2 (3.5-5.1) mmol/L Chloride 104 (98-107) mmol/L Carbon Dioxide 21.0 (21.0-32.0) mmol/L BUN 42 H (7.0-18.0) mg/dL Creatinine 1.9 H (0.8-1.3) mg/dL Est Cr Clr Drug Dosing 44.81 mL/min Estimated GFR (MDRD) 37.3 ml/min Glucose 159 H (74-106) mg/dL POC Glucose (60-110) mg/dL Calcium 7.9 L (8.5-10.1) mg/dL Total Bilirubin (0.2-1.0) mg/dL AST (15-37) IU/L ALT (14-63) IU/L Alkaline Phosphatase (46-116) U/L Creatine Kinase (26-308) U/L Troponin I < 0.050 (0.000-0.056) ng/mL Total Protein (6.4-8.2) g/dL Albumin (3.4-5.0) g/dL Globulin (2.0-3.5) g/dL Albumin/Globulin Ratio (1.3-2.8) Lipase (73-393) U/L Urine Color Urine Appearance Urine pH (5.0-8.0) Ur Specific [place] (1.001-1.035) Urine Protein (NEGATIVE) mg/dL Urine Glucose (UA) (NEGATIVE) mg/dL Urine Ketones (NEGATIVE) mg/dL Urine Occult Blood (NEGATIVE) Urine Nitrite (NEGATIVE) Urine Bilirubin (NEGATIVE) Urine Urobilinogen (<2.0) EU/dL Ur Leukocyte Esterase (NEGATIVE) Urine RBC (0-2/HPF) Urine WBC (0-5/HPF) Ur Epithelial Cells (NONE-FEW) Ur Renal Epithelial Cell Calcium Oxalate Crystal (NEGATIVE) Urine Bacteria (NEGATIVE) Fine Granular Casts (NEGATIVE) Coarse Granular Casts (NEGATIVE) 11/09/17 11/09/17 Range/Units 06:32 12:08 WBC (4.0-11.0) K/uL RBC (4.50-5.90) M/uL Hgb (13.0-17.0) g/dL Hct (38.0-50.0) % MCV (80.0-98.0) fL MCH (27.0-32.0) pg MCHC (31.0-37.0) g/dL RDW Std Deviation (28.0-62.0) fl RDW Coeff of Lianne (11.0-15.0) % Plt Count (150-400) K/uL MPV (7.40-12.00) fL Neut % (Auto) (48.0-80.0) % Lymph % (Auto) (16.0-40.0) % [place] % (Auto) (0.0-15.0) % Eos % (Auto) (0.0-7.0) % Baso % (Auto) (0.0-1.5) % Neut # (Auto) (1.4-5.7) K/uL Lymph # (Auto) (0.6-2.4) K/uL [place] # (Auto) (0.0-0.8) K/uL Eos # (Auto) (0.0-0.7) K/uL Baso # (Auto) (0.0-0.1) K/uL Nucleated RBC % /100WBC Nucleated RBCs # K/uL Sodium (136-148) mmol/L Potassium (3.5-5.1) mmol/L Chloride (98-107) mmol/L Carbon Dioxide (21.0-32.0) mmol/L BUN (7.0-18.0) mg/dL Creatinine (0.8-1.3) mg/dL Est Cr Clr Drug Dosing mL/min Estimated GFR (MDRD) ml/min Glucose (74-106) mg/dL POC Glucose 187 H 122 H (60-110) mg/dL Calcium (8.5-10.1) mg/dL Total Bilirubin (0.2-1.0) mg/dL AST (15-37) IU/L ALT (14-63) IU/L Alkaline Phosphatase (46-116) U/L Creatine Kinase (26-308) U/L Troponin I (0.000-0.056) ng/mL Total Protein (6.4-8.2) g/dL Albumin (3.4-5.0) g/dL Globulin (2.0-3.5) g/dL Albumin/Globulin Ratio (1.3-2.8) Lipase (73-393) U/L Urine Color Urine Appearance Urine pH (5.0-8.0) Ur Specific [place] (1.001-1.035) Urine Protein (NEGATIVE) mg/dL Urine Glucose (UA) (NEGATIVE) mg/dL Urine Ketones (NEGATIVE) mg/dL Urine Occult Blood (NEGATIVE) Urine Nitrite (NEGATIVE) Urine Bilirubin (NEGATIVE) Urine Urobilinogen (<2.0) EU/dL Ur Leukocyte Esterase (NEGATIVE) Urine RBC (0-2/HPF) Urine WBC (0-5/HPF) Ur Epithelial Cells (NONE-FEW) Ur Renal Epithelial Cell Calcium Oxalate Crystal (NEGATIVE) Urine Bacteria (NEGATIVE) Fine Granular Casts (NEGATIVE) Coarse Granular Casts (NEGATIVE) Med Orders - Current: Current Medications Acetaminophen (Tylenol) 650 mg PO Q4H PRN PRN Reason: Pain (Mild 1-3)/fever Atorvastatin Calcium (Lipitor) 40 mg PO DAILY [facility] Last Admin: 11/09/17 08:01 Dose: 40 mg Carvedilol (Coreg) 6.25 mg PO BID [facility] Last Admin: 11/09/17 08:00 Dose: 6.25 mg Clopidogrel Bisulfate (Plavix) 75 mg PO DAILY [facility] Last Admin: 11/09/17 08:01 Dose: 75 mg Gabapentin (Neurontin) 800 mg PO TID [facility] Last Admin: 11/09/17 06:28 Dose: 800 mg Heparin Sodium (Porcine) (Heparin Sodium) 5,000 units SUBCUT Q12H [facility] Last Admin: 11/09/17 09:20 Dose: 5,000 units Hydrochlorothiazide (Hydrochlorothiazide) 25 mg PO DAILY [facility] Last Admin: 11/09/17 08:01 Dose: 25 mg Sodium Chloride (Normal Saline) 1,000 mls @ 150 mls/hr IV ASDIRECTED [facility] Last Admin: 11/09/17 07:12 Dose: 150 mls/hr Levofloxacin (Levaquin) 500 mg PO Q24H [facility] Morphine Sulfate (Ms Contin) 15 mg PO TID [facility] Last Admin: 11/09/17 06:28 Dose: 15 mg Ondansetron HCl (Zofran) 4 mg IVPUSH Q4H PRN PRN Reason: Nausea Oxycodone HCl (Oxycodone) 5 mg PO Q6H PRN PRN Reason: Pain Last Admin: 11/09/17 07:11 Dose: 5 mg Discontinued Medications Aspirin (Aspirin) 324 mg PO ONETIME ONE Stop: 11/08/17 16:47 Last Admin: 11/08/17 17:00 Dose: 324 mg Sodium Chloride (Normal Saline) 1,000 mls @ 999 mls/hr IV STAT ONE Stop: 11/08/17 17:46 Last Admin: 11/08/17 17:00 Dose: 999 mls/hr - Exam General: Alert, Oriented Neck: Supple Lungs: Clear to Auscultation, Normal Respiratory Effort Cardiovascular: Regular Rate, Regular Rhythm GI/Abdominal Exam: Normal Bowel Sounds, Soft, Non-Tender Back Exam: No: CVA Tenderness (L), CVA Tenderness (R) Extremities: Non-Tender Skin: Warm, Dry, Intact - Problem List Review Problem List Initiated/Reviewed/Updated: Yes - My Orders Last 24 Hours: My Active Orders 11/08/17 18:36 Telemetry Monitoring [Cardiac Monitoring] [RC] . DIRECTED 11/08/17 22:01 oxyCODONE 5 mg PO Q6H PRN 11/08/17 22:05 Blood Glucose Check, Bedside [RC] TIDMEALS Oxygen Therapy [RC] PRN Up ad Natacha [RC] ASDIRECTED VTE/DVT Education [RC] PER UNIT ROUTINE Vital Signs [RC] Q4H Acetaminophen [Tylenol] 650 mg PO Q4H PRN Ondansetron [Zofran] 4 mg IVPUSH Q4H PRN Sequential Compression Device [OM.PC] Per Unit Routine Resuscitation Status Routine 11/08/17 22:15 Heparin Sodium 5,000 units SUBCUT Q12H 11/09/17 06:00 Gabapentin [Neurontin] 800 mg PO TID Morphine [MS Contin] 15 mg PO TID 11/09/17 09:00 Carvedilol [Coreg] 6.25 mg PO BID Clopidogrel [Plavix] 75 mg PO DAILY Hydrochlorothiazide 25 mg PO DAILY atorvaSTATin [Lipitor] 40 mg PO DAILY 11/09/17 12:52 CULTURE URINE [RM] Routine 11/09/17 13:00 Levofloxacin [Levaquin] 500 mg PO Q24H - Plan Plan:: 51 yo male presented with chest pain admitted for dehydration and acute kidney injury Chest pain: ruled out for acute coronary syndrome Dehydration: on IV fluids possible UTI: will start levaquin, culture ordered
[2017-11-09] MEDS: Levofloxacin 500 MG Tab PO SCH (13:04)
[2017-11-10] MEDS: Sodium Chloride 0.9% 1,000 ML IV SCH (03:48)
[2017-11-10] MEDS: Morphine 15 MG Tab.ER PO SCH (05:59)
[2017-11-10] MEDS: Gabapentin 800 MG Tab PO SCH (05:59)
[2017-11-10 06:11] LABS: CHLORIDE,CL 107 mmol/L (98-107); SODIUM,NA 138 mmol/L (136-148)
[2017-11-10] MEDS: oxyCODONE 5 MG Tab PO PRN (07:50)
[2017-11-10] MEDS: Carvedilol 6.25 MG Tab PO SCH (08:00)
[2017-11-10] MEDS: atorvaSTATin 40 MG Tab PO SCH (08:00)
[2017-11-10] MEDS: Clopidogrel 75 MG Tab PO SCH (08:00)
[2017-11-10] MEDS: Hydrochlorothiazide 25 MG Tab PO SCH (08:00)
[2017-11-10 08:01] VITALS: BP 113/73
--- NOTE | 2017-11-10 09:38 | PCM.DCSUM1 ---
Discharge Summary - Discharge Data Discharge Date: 11/10/17 Discharge Disposition: Home, Self-Care 01 Condition: Good - Patient Summary/Data Hospital Course: 51 yo male with pmh of DM, CAD, HTN, and chornic back pain who was admitted for dehydration, acute kidney injury and possible UTI. Patient presents to the ED with acute exacerbation of his back pain that radiated to his chest. He took 4 nitros prior to coming to the ED. Initial his blood pressure was low in the ED but this was felt due to the nitro. His labs were significant for a leukocytosis of 17,00 and a creatinine of 2.9. He was treated with IV fluids and PO levaquin with normalization of his WBC and creatinine. He ruled out for acute coronary syndrome with serial negative troponins and EKG and troponin. He was discharge home to have follow up with his PCP. - Discharge Plan Prescriptions/Med Rec: Levofloxacin [Levaquin] 500 mg PO Q24H #5 tablet Home Medications: Home Meds Aspirin [Ecotrin] 325 mg PO DAILY 11/08/17 [History] Carvedilol 6.25 mg PO BID 11/08/17 [History] Clopidogrel Bisulfate [Clopidogrel] 75 mg PO DAILY 11/08/17 [History] Gabapentin [Neurontin] 800 mg PO TID 11/08/17 [History] Hydrochlorothiazide 25 mg PO DAILY 11/08/17 [History] Insulin Regular, Human [NovoLIN R] 0 unit SUBCUT BIDAC 11/08/17 [History] Krill Oil/[place]-3/Dha/Epa [[place]-3 Krill Oil Softgel] 350 mg PO DAILY 11/08/17 [ History] Lisinopril 20 mg PO DAILY 11/08/17 [History] Methylphenidate HCl 20 mg PO DAILY 11/08/17 [History] Methylphenidate HCl [Methylphenidate ER] 54 mg PO DAILY 11/08/17 [History] Mometasone/Formoterol [[place]ulera 100-5 MCG] 1 puff IH DAILY PRN 11/08/17 [History] Morphine Sulfate [Morphine Sulfate ER] 15 mg PO TID 11/08/17 [History] atorvaSTATin Calcium [Atorvastatin Calcium] 40 mg PO DAILY 11/08/17 [History] metFORMIN [Glucophage] 850 mg PO BID 11/08/17 [History] oxyCODONE 5 mg PO Q6H PRN 11/08/17 [History] Levofloxacin [Levaquin] 500 mg PO Q24H #5 tablet 11/10/17 [Rx] Patient Handouts: Nonspecific Chest Pain, [id number] - Patient Data Vitals - Most Recent: Last Vital Signs Temp 36.4 C 11/10/17 08:00 Pulse 74 11/10/17 03:51 Resp 18 11/10/17 08:00 BP 113/73 11/10/17 08:00 Pulse Ox 99 11/10/17 08:00 Weight - Most Recent: 100.8 kg I&O - Last 24 hours: Intake & Output 11/09/17 11/10/17 11/10/17 22:59 06:59 14:59 Intake Total 120 2304 120 Output Total 600 1700 450 Balance -480 604 -330 Lab Results - Last 24 hrs: Laboratory Results - last 24 hr 11/09/17 11/09/17 11/10/17 Range/Units 12:08 16:53 05:47 WBC 7.25 (4.0-11.0) K/uL RBC 4.43 L (4.50-5.90) M/uL Hgb 13.3 (13.0-17.0) g/dL Hct 39.9 (38.0-50.0) % MCV 90.1 (80.0-98.0) fL MCH 30.0 (27.0-32.0) pg MCHC 33.3 (31.0-37.0) g/dL RDW Std Deviation 42.5 (28.0-62.0) fl RDW Coeff of Lianne 13 (11.0-15.0) % Plt Count 144 L (150-400) K/uL MPV 11.70 (7.40-12.00) fL Neut % (Auto) 61.4 (48.0-80.0) % Lymph % (Auto) 21.8 (16.0-40.0) % [place] % (Auto) 8.4 (0.0-15.0) % Eos % (Auto) 8.1 H (0.0-7.0) % Baso % (Auto) 0.3 (0.0-1.5) % Neut # (Auto) 4.5 (1.4-5.7) K/uL Lymph # (Auto) 1.6 (0.6-2.4) K/uL [place] # (Auto) 0.6 (0.0-0.8) K/uL Eos # (Auto) 0.6 (0.0-0.7) K/uL Baso # (Auto) 0.0 (0.0-0.1) K/uL Nucleated RBC % 0.0 /100WBC Nucleated RBCs # 0 K/uL Sodium (136-148) mmol/L Potassium (3.5-5.1) mmol/L Chloride (98-107) mmol/L Carbon Dioxide (21.0-32.0) mmol/L BUN (7.0-18.0) mg/dL Creatinine (0.8-1.3) mg/dL Est Cr Clr Drug Dosing mL/min Estimated GFR (MDRD) ml/min Glucose (74-106) mg/dL POC Glucose 122 H 170 H (60-110) mg/dL Calcium (8.5-10.1) mg/dL 11/10/17 11/10/17 Range/Units 05:47 05:58 WBC (4.0-11.0) K/uL RBC (4.50-5.90) M/uL Hgb (13.0-17.0) g/dL Hct (38.0-50.0) % MCV (80.0-98.0) fL MCH (27.0-32.0) pg MCHC (31.0-37.0) g/dL RDW Std Deviation (28.0-62.0) fl RDW Coeff of Lianne (11.0-15.0) % Plt Count (150-400) K/uL MPV (7.40-12.00) fL Neut % (Auto) (48.0-80.0) % Lymph % (Auto) (16.0-40.0) % [place] % (Auto) (0.0-15.0) % Eos % (Auto) (0.0-7.0) % Baso % (Auto) (0.0-1.5) % Neut # (Auto) (1.4-5.7) K/uL Lymph # (Auto) (0.6-2.4) K/uL [place] # (Auto) (0.0-0.8) K/uL Eos # (Auto) (0.0-0.7) K/uL Baso # (Auto) (0.0-0.1) K/uL Nucleated RBC % /100WBC Nucleated RBCs # K/uL Sodium 138 (136-148) mmol/L Potassium 4.9 (3.5-5.1) mmol/L Chloride 107 (98-107) mmol/L Carbon Dioxide 26.0 (21.0-32.0) mmol/L BUN 21 H (7.0-18.0) mg/dL Creatinine 1.1 (0.8-1.3) mg/dL Est Cr Clr Drug Dosing 77.40 mL/min Estimated GFR (MDRD) > 60.0 ml/min Glucose 293 H (74-106) mg/dL POC Glucose 267 H (60-110) mg/dL Calcium 7.9 L (8.5-10.1) mg/dL Med Orders - Current: Current Medications Acetaminophen (Tylenol) 650 mg PO Q4H PRN PRN Reason: Pain (Mild 1-3)/fever Atorvastatin Calcium (Lipitor) 40 mg PO DAILY [facility] Last Admin: 11/10/17 08:00 Dose: 40 mg Carvedilol (Coreg) 6.25 mg PO BID [facility] Last Admin: 11/10/17 08:00 Dose: 6.25 mg Clopidogrel Bisulfate (Plavix) 75 mg PO DAILY [facility] Last Admin: 11/10/17 08:00 Dose: 75 mg Gabapentin (Neurontin) 800 mg PO TID [facility] Last Admin: 11/10/17 05:59 Dose: 800 mg Heparin Sodium (Porcine) (Heparin Sodium) 5,000 units SUBCUT Q12H [facility] Last Admin: 11/09/17 21:48 Dose: 5,000 units Hydrochlorothiazide (Hydrochlorothiazide) 25 mg PO DAILY [facility] Last Admin: 11/10/17 08:00 Dose: 25 mg Sodium Chloride (Normal Saline) 1,000 mls @ 150 mls/hr IV ASDIRECTED [facility] Last Admin: 11/10/17 03:48 Dose: 150 mls/hr Levofloxacin (Levaquin) 500 mg PO Q24H [facility] Last Admin: 11/09/17 13:04 Dose: 500 mg Morphine Sulfate (Ms Contin) 15 mg PO TID [facility] Last Admin: 11/10/17 05:59 Dose: 15 mg Ondansetron HCl (Zofran) 4 mg IVPUSH Q4H PRN PRN Reason: Nausea Oxycodone HCl (Oxycodone) 5 mg PO Q6H PRN PRN Reason: Pain Last Admin: 11/10/17 07:50 Dose: 5 mg Discontinued Medications Aspirin (Aspirin) 324 mg PO ONETIME ONE Stop: 11/08/17 16:47 Last Admin: 11/08/17 17:00 Dose: 324 mg Sodium Chloride (Normal Saline) 1,000 mls @ 999 mls/hr IV STAT ONE Stop: 11/08/17 17:46 Last Admin: 11/08/17 17:00 Dose: 999 mls/hr
[2017-11-10] MEDS: Heparin Sodium 5,000 Units/ML Vial SUBCUT SCH (10:04)
[2017-11-10] MEDS: Levofloxacin 500 MG Tab PO SCH (10:11)
== END 2017-11-10 10:49 | disposition home or self-care (01) ==
LOC: MW.ED 16:40 → MW.ICU 17:56
PROVIDERS: ADMIT Internal Medicine; ATTEND Internal Medicine
DX: R07.89 Other chest pain (principal); E86.0 Dehydration; E11.40 Type 2 diabetes mellitus with diabetic neuropathy, unspecified; E78.00 Pure hypercholesterolemia, unspecified; D72.829 Elevated white blood cell count, unspecified; N17.9 Acute kidney failure, unspecified; I25.10 Atherosclerotic heart disease of native coronary artery without angina pectoris; I10 Essential (primary) hypertension; I25.2 Old myocardial infarction; J45.909 Unspecified asthma, uncomplicated; G89.29 Other chronic pain; M54.9 Dorsalgia, unspecified; M19.90 Unspecified osteoarthritis, unspecified site; F17.210 Nicotine dependence, cigarettes, uncomplicated; Z79.4 Long term (current) use of insulin; Z79.82 Long term (current) use of aspirin; Z79.899 Other long term (current) drug therapy
CPT/HCPCS: 36415; 71045; 80048; 80053; 81001; 82550; 82962; 83690; 84484; 85025; 85027; 87086; 93005; 96360; 96361; 96372; 99285; A9270; G0378; J1644; J7040; 99283

== ENCOUNTER 2018-12-14 14:55 | Observation (INO) | payer MEDICARE, MEDICAID ==
[2018-12-14] MEDS ORDERED: Sodium Chloride 0.9% 10 ML Syringe FLUSH PRN (15:01)
[2018-12-14] MEDS ORDERED: Sodium Chloride 0.9% 2.5 ML Syringe FLUSH PRN (15:01)
--- NOTE | 2018-12-14 15:06 | EDM.PDOC ---
ED HPI GENERAL MEDICAL PROBLEM - General Chief Complaint: Chest Pain Stated Complaint: SOB Time Seen by Provider: 12/14/18 15:01 Source of Information: Reports: Patient History Limitations: Reports: No Limitations - History of Present Illness INITIAL COMMENTS - FREE TEXT/NARRATIVE: History of present illness: []Patient with a history of diabetes, hypertension, coronary artery disease with previous MS in 2011, arrives with chief complaint of 5/10 the gastric/ chest pain radiating to his back that started an hour and half ago. His pain associated with orders of breath and sweating.. He's had 3 days of intermittent chest pain Review of systems: As per history of present illness and below otherwise all systems reviewed and negative. Past medical history: As per history of present illness and as reviewed below otherwise noncontributory. Surgical history: As per history of present illness and as reviewed below otherwise noncontributory. Social history: No reported history of drug or alcohol abuse. Family history: As per history of present illness and as reviewed below otherwise noncontributory. Physical exam: General: Well developed, well nourished in NAD HEENT: Atraumatic, normocephalic, pupils reactive, negative for conjunctival pallor or scleral icterus, mucous membranes moist, throat clear, neck supple, nontender, trachea midline. Lungs: Clear to auscultation, breath sounds equal bilaterally, chest nontender. Heart: S1S2, regular, negative for clicks, rubs, or JVD. Abdomen: NABS, Soft, nondistended, nontender. Negative for masses or hepatosplenomegaly. Negative for costovertebral tenderness. Pelvis: Stable nontender. Genitourinary: Deferred. Rectal: Deferred. Extremities: Atraumatic, negative for cords or calf pain. Neurovascular unremarkable. Neuro: Awake, alert, oriented. Cranial nerves II through XII unremarkable. Cerebellum unremarkable. Motor and sensory unremarkable throughout. Exam nonfocal. Skin:warm and dry Diagnostics: CBC, chemistry, troponin, chest x-ray, EKG Therapeutics: Aspirin, nitroglycerin ED Course: Pain completely alleviated with nitroglycerin Consulted Dr. Barriga who will admit this patient for observation Impression: Chest pain Prescriptions: None Plan: Admit for observation for for chest pain rule out, Definitive disposition and diagnosis as appropriate pending reevaluation and review of above. Chest Pain Score (Numeric/FACES): 0 - Related Data Allergies Allergy/AdvReac Type Severity Reaction Status Date / Time No Known Allergies Allergy Verified 12/14/18 17:31 Home Meds: Home Meds Aspirin [Ecotrin EC] 325 mg PO DAILY 11/08/17 [History] Carvedilol 6.25 mg PO BID 11/08/17 [History] Clopidogrel Bisulfate [Clopidogrel] 75 mg PO DAILY 11/08/17 [History] Gabapentin [Neurontin] 800 mg PO TID 11/08/17 [History] Insulin Regular, Human [NovoLIN R] 0 unit SUBCUT BIDAC 11/08/17 [History] Krill Oil/[place]-3/Dha/Epa [[place]-3 Krill Oil Softgel] 350 mg PO DAILY 11/08/17 [ History] Lisinopril 40 mg PO BID 11/08/17 [History] Methylphenidate HCl 20 mg PO DAILY 11/08/17 [History] Methylphenidate HCl [Methylphenidate ER] 54 mg PO DAILY 11/08/17 [History] Mometasone/Formoterol [Dulera 100-5 MCG] 1 puff IH DAILY PRN 11/08/17 [History] Morphine Sulfate [Morphine Sulfate ER] 15 mg PO TID 11/08/17 [History] atorvaSTATin Calcium [Atorvastatin Calcium] 40 mg PO DAILY 11/08/17 [History] hydroCHLOROthiazide [Hydrochlorothiazide] 25 mg PO DAILY 11/08/17 [History] metFORMIN [Glucophage] 850 mg PO BID 11/08/17 [History] oxyCODONE 5 mg PO Q6H PRN 11/08/17 [History] levoFLOXacin [Levaquin] 500 mg PO Q24H #5 tablet 11/10/17 [Rx] Past Medical History HEENT History: Reports: Other (See Below) Other HEENT History: broken nose, sinus issues Cardiovascular History: Reports: High Cholesterol, Hypertension, MS Respiratory History: Reports: Asthma, Pneumonia, Recurrent Gastrointestinal History: Reports: None Genitourinary History: Reports: None Musculoskeletal History: Reports: Arthritis, Back Pain, Chronic, Fracture Other Musculoskeletal History: Chronic pain Neurological History: Reports: Concussion, Neuropathy, Diabetic Psychiatric History: Reports: None Endocrine/Metabolic History: Reports: Diabetes, Type II Hematologic History: Reports: None Immunologic History: Reports: None Oncologic (Cancer) History: Reports: None Dermatologic History: Reports: Cellulitis - Infectious Disease History Infectious Disease History: Reports: None Other Infectious Disease History: MRSA - Past Surgical History HEENT Surgical History: Reports: None Cardiovascular Surgical History: Reports: Vascular Surgery Respiratory Surgical History: Reports: None GI Surgical History: Reports: None Male Surgical History: Reports: Vasectomy Neurological Surgical History: Reports: None Musculoskeletal Surgical History: Reports: Other (See Below) Other Musculoskeletal Surgeries/Procedures:: Hx of 32 sugeries, titanium in bilateral knees Dermatological Surgical History: Reports: None Social & Family History - Family History Family Medical History: Noncontributory - Caffeine Use Caffeine Use: Reports: Coffee, Soda Other Caffeine Use: 1 cup every other day ED ROS GENERAL - Review of Systems Review Of Systems: See Below ED EXAM, GENERAL - Physical Exam Exam: See Below Course - Vital Signs Last Recorded V/S: Last Vital Signs Temp 97 F 12/14/18 16:28 Pulse 55 L 12/14/18 16:28 Resp 18 12/14/18 16:28 BP 137/78 12/14/18 16:28 Pulse Ox 97 12/14/18 16:28 - Orders/Labs/Meds Orders: Active Orders 24 hr Category Date Time Status Sodium Chloride 0.9% [Saline Flush] Med 12/14/18 15:01 Active 10 ml FLUSH ASDIRECTED PRN Sodium Chloride 0.9% [Saline Flush] Med 12/14/18 15:01 Active 2.5 ml FLUSH ASDIRECTED PRN Saline Lock Insert [OM.PC] Stat Oth 12/14/18 15:01 Ordered Medication Orders Acetaminophen (Tylenol) 650 mg PO Q4H PRN PRN Reason: Pain (Mild 1-3)/fever Hydrocodone Bitart/Acetaminophen ([place] 325-5 Mg) 1 tab PO Q4H PRN PRN Reason: Pain (moderate 4-6) Atorvastatin Calcium (Lipitor) 40 mg PO DAILY [facility] Carvedilol (Coreg) 6.25 mg PO BID [facility] Clopidogrel Bisulfate (Plavix) 75 mg PO DAILY [facility] Enoxaparin Sodium (Lovenox) 30 mg SUBCUT Q24H [facility] Last Admin: 12/14/18 17:24 Dose: 30 mg Gabapentin (Neurontin) 800 mg PO TID [facility] Sodium Chloride (Normal Saline) 1,000 mls @ 125 mls/hr IV ASDIRECTED [facility] Last Admin: 12/14/18 17:25 Dose: 125 mls/hr Insulin Aspart (Novolog) 0 unit SUBCUT TIDAC [facility]; Protocol Last Admin: 12/14/18 17:40 Dose: Not Given Morphine Sulfate (Ms Contin) 15 mg PO TID [facility] Nitroglycerin (Nitrostat) 0.4 mg SL Q5M PRN PRN Reason: Chest Pain Non-Formulary Medication (Mometasone/Formoterol) 1 puff IH DAILY PRN PRN Reason: Shortness of Breath Ondansetron HCl (Zofran Odt) 4 mg PO Q4H PRN PRN Reason: nausea, able to take PO Ondansetron HCl (Zofran) 4 mg IVPUSH Q4H PRN PRN Reason: Nausea Pantoprazole Sodium (Protonix) 40 mg PO ACBREAKFAST [facility] Sodium Chloride (Saline Flush) 10 ml FLUSH ASDIRECTED PRN PRN Reason: Keep Vein Open Sodium Chloride (Saline Flush) 2.5 ml FLUSH ASDIRECTED PRN PRN Reason: Keep Vein Open Temazepam (Restoril) 15 mg PO BEDTIME PRN PRN Reason: Sleep Labs: Laboratory Tests 12/14/18 12/14/18 12/14/18 Range/Units 15:05 15:05 15:05 WBC 13.62 H (4.0-11.0) K/uL RBC 5.16 (4.50-5.90) M/uL Hgb 15.6 (13.0-17.0) g/dL Hct 46.5 (38.0-50.0) % MCV 90.1 (80.0-98.0) fL MCH 30.2 (27.0-32.0) pg MCHC 33.5 (31.0-37.0) g/dL RDW Std Deviation 43.5 (28.0-62.0) fl RDW Coeff of Lianne 14 (11.0-15.0) % Plt Count 156 (150-400) K/uL MPV 11.50 (7.40-12.00) fL Neut % (Auto) 75.8 (48.0-80.0) % Lymph % (Auto) 12.5 L (16.0-40.0) % [place] % (Auto) 6.8 (0.0-15.0) % Eos % (Auto) 4.7 (0.0-7.0) % Baso % (Auto) 0.2 (0.0-1.5) % Neut # (Auto) 10.3 H (1.4-5.7) K/uL Lymph # (Auto) 1.7 (0.6-2.4) K/uL [place] # (Auto) 0.9 H (0.0-0.8) K/uL Eos # (Auto) 0.6 (0.0-0.7) K/uL Baso # (Auto) 0.0 (0.0-0.1) K/uL Sodium 139 (136-148) mmol/L Potassium 5.2 H (3.5-5.1) mmol/L Chloride 105 (98-107) mmol/L Carbon Dioxide 25.5 (21.0-32.0) mmol/L BUN 8 (7.0-18.0) mg/dL Creatinine 0.9 (0.8-1.3) mg/dL Est Cr Clr Drug Dosing TNP Estimated GFR (MDRD) > 60.0 ml/min Glucose 201 H (74-106) mg/dL Hemoglobin A1c (4.5-6.2) % Calcium 9.3 (8.5-10.1) mg/dL Total Bilirubin 1.0 (0.2-1.0) mg/dL AST 7 L (15-37) IU/L ALT 32 (14-63) IU/L Alkaline Phosphatase 94 (46-116) U/L Creatine Kinase 61 (26-308) U/L Troponin I < 0.050 (0.000-0.056) ng/mL Total Protein 7.4 (6.4-8.2) g/dL Albumin 3.8 (3.4-5.0) g/dL Globulin 3.6 (2.6-4.0) g/dL Albumin/Globulin Ratio 1.1 (0.9-1.6) TSH 3rd Generation 1.17 (0.36-3.74) uIU/mL 12/14/18 Range/Units 15:05 WBC (4.0-11.0) K/uL RBC (4.50-5.90) M/uL Hgb (13.0-17.0) g/dL Hct (38.0-50.0) % MCV (80.0-98.0) fL MCH (27.0-32.0) pg MCHC (31.0-37.0) g/dL RDW Std Deviation (28.0-62.0) fl RDW Coeff of Lianne (11.0-15.0) % Plt Count (150-400) K/uL MPV (7.40-12.00) fL Neut % (Auto) (48.0-80.0) % Lymph % (Auto) (16.0-40.0) % [place] % (Auto) (0.0-15.0) % Eos % (Auto) (0.0-7.0) % Baso % (Auto) (0.0-1.5) % Neut # (Auto) (1.4-5.7) K/uL Lymph # (Auto) (0.6-2.4) K/uL [place] # (Auto) (0.0-0.8) K/uL Eos # (Auto) (0.0-0.7) K/uL Baso # (Auto) (0.0-0.1) K/uL Sodium (136-148) mmol/L Potassium (3.5-5.1) mmol/L Chloride (98-107) mmol/L Carbon Dioxide (21.0-32.0) mmol/L BUN (7.0-18.0) mg/dL Creatinine (0.8-1.3) mg/dL Est Cr Clr Drug Dosing Estimated GFR (MDRD) ml/min Glucose (74-106) mg/dL Hemoglobin A1c 7.3 H (4.5-6.2) % Calcium (8.5-10.1) mg/dL Total Bilirubin (0.2-1.0) mg/dL AST (15-37) IU/L ALT (14-63) IU/L Alkaline Phosphatase (46-116) U/L Creatine Kinase (26-308) U/L Troponin I (0.000-0.056) ng/mL Total Protein (6.4-8.2) g/dL Albumin (3.4-5.0) g/dL Globulin (2.6-4.0) g/dL Albumin/Globulin Ratio (0.9-1.6) TSH 3rd Generation (0.36-3.74) uIU/mL Meds: Medications Generic Name Dose Route Start Last Admin Trade Name Freq PRN Reason Stop Dose Admin Acetaminophen 650 mg 12/14/18 16:21 Tylenol PO Q4H PRN Pain (Mild 1-3)/fever Hydrocodone Bitart/Acetaminophen 1 tab 12/14/18 16:21 [place] 325-5 Mg PO Q4H PRN Pain (moderate 4-6) Atorvastatin Calcium 40 mg 12/15/18 09:00 Lipitor PO DAILY [facility] Carvedilol 6.25 mg 12/14/18 21:00 Coreg PO BID [facility] Clopidogrel Bisulfate 75 mg 12/15/18 09:00 Plavix PO DAILY [facility] Enoxaparin Sodium 30 mg 12/14/18 16:30 12/14/18 17:24 Lovenox SUBCUT 30 mg Q24H [facility] Administration Gabapentin 800 mg 12/14/18 22:00 Neurontin PO TID [facility] Sodium Chloride 1,000 mls @ 125 mls/hr 12/14/18 16:30 12/14/18 17:25 Normal Saline IV 125 mls/hr ASDIRECTED [facility] Administration Insulin Aspart 0 unit 12/14/18 17:00 12/14/18 17:40 Novolog SUBCUT Not Given TIDAC [facility] Protocol Morphine Sulfate 15 mg 12/14/18 22:00 Ms Contin PO TID [facility] Nitroglycerin 0.4 mg 12/14/18 16:25 Nitrostat SL Q5M PRN Chest Pain Non-Formulary Medication 1 puff 12/14/18 16:23 Mometasone/Formoterol IH DAILY PRN Shortness of Breath Ondansetron HCl 4 mg 12/14/18 16:21 Zofran Odt PO Q4H PRN nausea, able to take PO Ondansetron HCl 4 mg 12/14/18 16:21 Zofran IVPUSH Q4H PRN Nausea Pantoprazole Sodium 40 mg 12/15/18 07:30 Protonix PO ACBREAKFAST [facility] Sodium Chloride 10 ml 12/14/18 15:01 Saline Flush FLUSH ASDIRECTED PRN Keep Vein Open Sodium Chloride 2.5 ml 12/14/18 15:01 Saline Flush FLUSH ASDIRECTED PRN Keep Vein Open Temazepam 15 mg 12/14/18 16:21 Restoril PO BEDTIME PRN Sleep Discontinued Medications Generic Name Dose Route Start Last Admin Trade Name Raya PRN Reason Stop Dose Admin Aspirin 324 mg 12/14/18 15:14 12/14/18 15:19 Aspirin PO 12/14/18 15:15 324 mg ONETIME ONE Administration Nitroglycerin 0.4 mg 12/14/18 15:14 12/14/18 15:31 Nitrostat SL 0.4 mg Q5M PRN Administration Chest Pain Departure - Departure Time of Disposition: 17:00 Disposition: Refer to Observation Condition: Good Clinical Impression: Chest pain - My Orders Last 24 Hours: My Active Orders 12/14/18 15:01 Sodium Chloride 0.9% [Saline Flush] 10 ml FLUSH ASDIRECTED PRN Sodium Chloride 0.9% [Saline Flush] 2.5 ml FLUSH ASDIRECTED PRN Saline Lock Insert [OM.PC] Stat - Assessment/Plan Last 24 Hours: My Active Orders 12/14/18 15:01 Sodium Chloride 0.9% [Saline Flush] 10 ml FLUSH ASDIRECTED PRN Sodium Chloride 0.9% [Saline Flush] 2.5 ml FLUSH ASDIRECTED PRN Saline Lock Insert [OM.PC] Stat
[2018-12-14] MEDS ORDERED: Aspirin 81 MG Tab.Chew PO ONE (15:14)
[2018-12-14] MEDS: Nitroglycerin 0.4 MG Tab.SL SL PRN ×3 (15:20→15:31)
[2018-12-14 15:34] LABS: BLOOD UREA NITROGEN,BUN 8 mg/dL (7.0-18.0); CARBON DIOXIDE,CO2 25.5 mmol/L (21.0-32.0); CHLORIDE,CL 105 mmol/L (98-107); GLUCOSE RANDOM 201 mg/dL (74-106); POTASSIUM,K 5.2 mmol/L (3.5-5.1); SODIUM,NA 139 mmol/L (136-148)
--- NOTE | 2018-12-14 16:00 | CR ---
Indication: Chest pain. Technique: A single AP portable view of the chest was obtained. Comparison: None Findings: The heart is normal in size. The lungs are clear. No infiltrate, pleural effusion, or pneumothorax is identified. Impression: No acute cardiopulmonary process. Dictated by Erin Tom MD @ Dec 14 2018 3:58PM Signed by Dr. Erin Tom @ Dec 14 2018 3:58PM
[2018-12-14] MEDS ORDERED: Acetaminophen 325 MG Tab PO PRN (16:21)
[2018-12-14] MEDS ORDERED: Ondansetron 4 MG Tab.DIS PO PRN (16:21)
[2018-12-14] MEDS ORDERED: Ondansetron 4 MG/2 ML SDV IVPUSH PRN (16:21)
[2018-12-14] MEDS ORDERED: Temazepam 15 MG Cap PO PRN (16:21)
[2018-12-14] MEDS ORDERED: MOMETASONE IH PRN (16:23)
[2018-12-14] MEDS ORDERED: FORMOTEROL IH PRN (16:23)
[2018-12-14] MEDS ORDERED: Nitroglycerin 0.4 MG Tab.SL SL PRN (16:25)
[2018-12-14] MEDS ORDERED: Enoxaparin 30 MG/0.3 ML Syringe SUBCUT SCH (16:30)
--- NOTE | 2018-12-14 16:50 | PCM.HP ---
H&P History of Present Illness - General Date of Service: 12/14/18 Admit Problem/Dx: Admission Diagnosis/Problem Admission Diagnosis/Problem Chest pain - History of Present Illness Initial Comments - Free Text/Narative: 52 y/o male with history of CAD, DM2, HTN and chronic pain who presented to the ER complaining of chest pain and generalized weakness. Patient states that for the past few days he has been working outside in a barn and that he has been trying to keep hydrated with fluids. He states that 2-3 days ago he started having chest pressure substernally. No radiation to neck or arms. Worse with deep inspirations. Denies any fevers, cough or recent illness. No nausea or vomiting. Denies abdominal pain, diarrhea, constipation or blood in stool. He does endorse some dysuria and dark urine. In the ER, he EKG was performed which did not show any ST elevations. Initial troponin was negative. Chest xray did not show any consolidations, effusions. Currently stating he feels better and not having chest pain. Chest Pain Score (Numeric/FACES): 0 - Related Data Allergies/Adverse Reactions: Allergies Allergy/AdvReac Type Severity Reaction Status Date / Time No Known Allergies Allergy Verified 12/14/18 15:10 Home Medications: Home Meds Aspirin [Ecotrin EC] 325 mg PO DAILY 11/08/17 [History] Carvedilol 6.25 mg PO BID 11/08/17 [History] Clopidogrel Bisulfate [Clopidogrel] 75 mg PO DAILY 11/08/17 [History] Gabapentin [Neurontin] 800 mg PO TID 11/08/17 [History] Insulin Regular, Human [NovoLIN R] 0 unit SUBCUT BIDAC 11/08/17 [History] Krill Oil/Canton-3/Dha/Epa [Canton-3 Krill Oil Softgel] 350 mg PO DAILY 11/08/17 [ History] Lisinopril 20 mg PO DAILY 11/08/17 [History] Methylphenidate HCl 20 mg PO DAILY 11/08/17 [History] Methylphenidate HCl [Methylphenidate ER] 54 mg PO DAILY 11/08/17 [History] Mometasone/Formoterol [Dulera 100-5 MCG] 1 puff IH DAILY PRN 11/08/17 [History] Morphine Sulfate [Morphine Sulfate ER] 15 mg PO TID 11/08/17 [History] atorvaSTATin Calcium [Atorvastatin Calcium] 40 mg PO DAILY 11/08/17 [History] hydroCHLOROthiazide [Hydrochlorothiazide] 25 mg PO DAILY 11/08/17 [History] metFORMIN [Glucophage] 850 mg PO BID 11/08/17 [History] oxyCODONE 5 mg PO Q6H PRN 11/08/17 [History] levoFLOXacin [Levaquin] 500 mg PO Q24H #5 tablet 11/10/17 [Rx] Past Medical History - Past Health History Medical/Surgical History: Denies Medical/Surgical History HEENT History: Reports: Other (See Below) Other HEENT History: broken nose, sinus issues Cardiovascular History: Reports: High Cholesterol, Hypertension, CA Respiratory History: Reports: Asthma, Pneumonia, Recurrent Gastrointestinal History: Reports: None Genitourinary History: Reports: None Musculoskeletal History: Reports: Arthritis, Back Pain, Chronic, Fracture Other Musculoskeletal History: Chronic pain Neurological History: Reports: Concussion, Neuropathy, Diabetic Psychiatric History: Reports: None Endocrine/Metabolic History: Reports: Diabetes, Type II Hematologic History: Reports: None Immunologic History: Reports: None Oncologic (Cancer) History: Reports: None Dermatologic History: Reports: Cellulitis - Infectious Disease History Infectious Disease History: Reports: None Other Infectious Disease History: MRSA - Past Surgical History HEENT Surgical History: Reports: None Cardiovascular Surgical History: Reports: Vascular Surgery Respiratory Surgical History: Reports: None GI Surgical History: Reports: None Male Surgical History: Reports: Vasectomy Neurological Surgical History: Reports: None Musculoskeletal Surgical History: Reports: Other (See Below) Other Musculoskeletal Surgeries/Procedures:: Hx of 32 sugeries, titanium in bilateral knees Dermatological Surgical History: Reports: None Social & Family History - Family History Family Medical History: Noncontributory - Tobacco Use Smoking Status *Q: Former Smoker Used Tobacco, but Quit: Yes Month/Year Tobacco Last Used: Dec 2018 - Caffeine Use Caffeine Use: Reports: Coffee, Soda Other Caffeine Use: 1 cup every other day - Recreational Drug Use Recreational Drug Use: No H&P Review of Systems - Review of Systems: Review Of Systems: ROS reveals no pertinent complaints other than HPI. Exam - Exam Exam: See Below - Vital Signs Vital Signs: Last Vital Signs Temp 36.1 C 12/14/18 16:28 Pulse 55 L 12/14/18 16:28 Resp 18 12/14/18 16:28 BP 137/78 12/14/18 16:28 Pulse Ox 97 12/14/18 16:28 - Exam General: Alert, Oriented, Cooperative HEENT: Other (dry oral mucosa) Lungs: Clear to Auscultation, Normal Respiratory Effort. No: Crackles, Rhonchi , Wheezing Cardiovascular: Regular Rate, Regular Rhythm GI/Abdominal Exam: Normal Bowel Sounds, Soft, Non-Tender, No Distention Extremities: Normal Inspection, No Pedal Edema Skin: Warm, Dry Neuro Extensive - Mental Status: Alert, Oriented x3 - Patient Data Lab Results Last 24 hrs: Laboratory Results - last 24 hr 12/14/18 12/14/18 Range/Units 15:05 15:05 WBC 13.62 H (4.0-11.0) K/uL RBC 5.16 (4.50-5.90) M/uL Hgb 15.6 (13.0-17.0) g/dL Hct 46.5 (38.0-50.0) % MCV 90.1 (80.0-98.0) fL MCH 30.2 (27.0-32.0) pg MCHC 33.5 (31.0-37.0) g/dL RDW Std Deviation 43.5 (28.0-62.0) fl RDW Coeff of Lianne 14 (11.0-15.0) % Plt Count 156 (150-400) K/uL MPV 11.50 (7.40-12.00) fL Neut % (Auto) 75.8 (48.0-80.0) % Lymph % (Auto) 12.5 L (16.0-40.0) % [place] % (Auto) 6.8 (0.0-15.0) % Eos % (Auto) 4.7 (0.0-7.0) % Baso % (Auto) 0.2 (0.0-1.5) % Neut # (Auto) 10.3 H (1.4-5.7) K/uL Lymph # (Auto) 1.7 (0.6-2.4) K/uL [place] # (Auto) 0.9 H (0.0-0.8) K/uL Eos # (Auto) 0.6 (0.0-0.7) K/uL Baso # (Auto) 0.0 (0.0-0.1) K/uL Sodium 139 (136-148) mmol/L Potassium 5.2 H (3.5-5.1) mmol/L Chloride 105 (98-107) mmol/L Carbon Dioxide 25.5 (21.0-32.0) mmol/L BUN 8 (7.0-18.0) mg/dL Creatinine 0.9 (0.8-1.3) mg/dL Est Cr Clr Drug Dosing TNP Estimated GFR (MDRD) > 60.0 ml/min Glucose 201 H (74-106) mg/dL Calcium 9.3 (8.5-10.1) mg/dL Total Bilirubin 1.0 (0.2-1.0) mg/dL AST 7 L (15-37) IU/L ALT 32 (14-63) IU/L Alkaline Phosphatase 94 (46-116) U/L Troponin I < 0.050 (0.000-0.056) ng/mL Total Protein 7.4 (6.4-8.2) g/dL Albumin 3.8 (3.4-5.0) g/dL Globulin 3.6 (2.6-4.0) g/dL Albumin/Globulin Ratio 1.1 (0.9-1.6) Result Diagrams: 12/14/18 15:05 12/14/18 15:05 Problem List Initiated/Reviewed/Updated: Yes Orders Last 24hrs: Active Orders 24 hr Category Date Time Status Patient Status [ADT] Stat ADT 12/14/18 16:01 Active Blood Glucose Check, Bedside [RC] WITHMEALSANDBED Care 12/14/18 16:21 Active Cardiac Monitoring [RC] . DIRECTED Care 12/14/18 15:01 Active Cardiac Monitoring [RC] CONTINUOUS Care 12/14/18 16:21 Active Intake and Output [RC] QSHIFT Care 12/14/18 16:21 Active Oxygen Therapy [RC] PRN Care 12/14/18 16:21 Active Up ad Natacha [RC] ASDIRECTED Care 12/14/18 16:21 Active VTE/DVT Education [RC] PER UNIT ROUTINE Care 12/14/18 16:21 Active Vital Signs [RC] Q4H Care 12/14/18 16:21 Active [employer] Diet [DIET] Diet 12/14/18 Breakfast Active Echo Comp wo Cont [US] Routine Exams 12/15/18 08:00 Ordered BASIC METABOLIC PANEL,BMP [CHEM] AM Lab 12/15/18 05:11 Ordered CBC W/O DIFF,HEMOGRAM [HEME] AM Lab 12/15/18 05:11 Ordered CREATINE KINASE,CK [CHEM] Routine Lab 12/14/18 15:05 Received CULTURE MRSA [RM] Routine Lab 12/14/18 16:33 Ordered GLYCOSYLATED HEMOGLOBIN,HGBA1C [CHEM] Routine Lab 12/14/18 15:05 Received LIPID PANEL [CHEM] AM Lab 12/15/18 05:11 Ordered TROPONIN I [CHEM] Q6H Lab 12/14/18 21:00 Ordered TROPONIN I [CHEM] Q6H Lab 12/15/18 03:00 Ordered TSH [CHEM] Routine Lab 12/14/18 15:05 Received UA RFX EMIL AND CULT IF INDIC [URIN] Routine Lab 12/14/18 16:27 Ordered Acetaminophen [Tylenol] Med 12/14/18 16:21 Active 650 mg PO Q4H PRN Acetaminophen/HYDROcodone [Christiana 325-5 MG] Med 12/14/18 16:21 Active 1 tab PO Q4H PRN Carvedilol [Coreg] Med 12/14/18 21:00 Active 6.25 mg PO BID Clopidogrel [Plavix] Med 12/15/18 09:00 Active 75 mg PO DAILY Enoxaparin [Lovenox] Med 12/14/18 16:30 Active 30 mg SUBCUT Q24H Gabapentin [Neurontin] Med 12/14/18 22:00 Active 800 mg PO TID Insulin Aspart [NovoLOG] Med 12/14/18 17:00 Active See Protocol SUBCUT TIDAC Mometasone/Formoterol Med 12/14/18 16:23 Active 1 puff IH DAILY PRN Morphine [MS Contin] Med 12/14/18 22:00 Active 15 mg PO TID Nitroglycerin [Nitrostat] Med 12/14/18 16:25 Active 0.4 mg SL Q5M PRN Ondansetron [Zofran ODT] Med 12/14/18 16:21 Active 4 mg PO Q4H PRN Ondansetron [Zofran] Med 12/14/18 16:21 Active 4 mg IVPUSH Q4H PRN Sodium Chloride 0.9% [Normal Saline] 1,000 ml Med 12/14/18 16:30 Active IV ASDIRECTED Sodium Chloride 0.9% [Saline Flush] Med 12/14/18 15:01 Active 10 ml FLUSH ASDIRECTED PRN Sodium Chloride 0.9% [Saline Flush] Med 12/14/18 15:01 Active 2.5 ml FLUSH ASDIRECTED PRN Temazepam [Restoril] Med 12/14/18 16:21 Active 15 mg PO BEDTIME PRN atorvaSTATin [Lipitor] Med 12/15/18 09:00 Active 40 mg PO DAILY Saline Lock Insert [OM.PC] Stat Oth 12/14/18 15:01 Ordered Resuscitation Status Routine Resus Stat 12/14/18 16:21 Ordered Medication Orders Acetaminophen (Tylenol) 650 mg PO Q4H PRN PRN Reason: Pain (Mild 1-3)/fever Hydrocodone Bitart/Acetaminophen (Christiana 325-5 Mg) 1 tab PO Q4H PRN PRN Reason: Pain (moderate 4-6) Atorvastatin Calcium (Lipitor) 40 mg PO DAILY [facility] Carvedilol (Coreg) 6.25 mg PO BID [facility] Clopidogrel Bisulfate (Plavix) 75 mg PO DAILY [facility] Enoxaparin Sodium (Lovenox) 30 mg SUBCUT Q24H [facility] Gabapentin (Neurontin) 800 mg PO TID [facility] Sodium Chloride (Normal Saline) 1,000 mls @ 125 mls/hr IV ASDIRECTED [facility] Insulin Aspart (Novolog) 0 unit SUBCUT TIDAC [facility]; Protocol Morphine Sulfate (Ms Contin) 15 mg PO TID [facility] Nitroglycerin (Nitrostat) 0.4 mg SL Q5M PRN PRN Reason: Chest Pain Non-Formulary Medication (Mometasone/Formoterol) 1 puff IH DAILY PRN PRN Reason: Shortness of Breath Ondansetron HCl (Zofran Odt) 4 mg PO Q4H PRN PRN Reason: nausea, able to take PO Ondansetron HCl (Zofran) 4 mg IVPUSH Q4H PRN PRN Reason: Nausea Sodium Chloride (Saline Flush) 10 ml FLUSH ASDIRECTED PRN PRN Reason: Keep Vein Open Sodium Chloride (Saline Flush) 2.5 ml FLUSH ASDIRECTED PRN PRN Reason: Keep Vein Open Temazepam (Restoril) 15 mg PO BEDTIME PRN PRN Reason: Sleep Assessment/Plan Comment:: A: 1. Chest pain, rule out ACS 2. Leukocytosis 3. PMH DM2, CAD, HTN P: 1. Monitor on telemetry. Serial troponins. Echo for morning. Maintenance fluids at 125 ml/hr IV NS. Will resume home meds. Will check U/A due to slight leukocytosis. Suspect he should be adequate for discharge tomorrow.
[2018-12-14 17:01] LABS: HEMOGLOBIN A1C 7.3 % (4.5-6.2)
[2018-12-14] MEDS: Sodium Chloride 0.9% 1,000 ML IV SCH (17:25)
[2018-12-14] MEDS: Insulin Aspart 100 Units/ML 3 ML Pen SUBCUT SCH (17:40)
[2018-12-14] MEDS: Acetaminophen/HYDROcodone 325-5 MG Tab PO PRN (19:19)
[2018-12-14] MEDS: Morphine 15 MG Tab.ER PO SCH (21:25)
[2018-12-14] MEDS: Gabapentin 800 MG Tab PO SCH (21:26)
[2018-12-14] MEDS: Carvedilol 6.25 MG Tab PO SCH (21:27)
[2018-12-15 03:23] LABS: BLOOD UREA NITROGEN,BUN 12 mg/dL (7.0-18.0); CARBON DIOXIDE,CO2 25.3 mmol/L (21.0-32.0); CHLORIDE,CL 105 mmol/L (98-107); GLUCOSE RANDOM 169 mg/dL (74-106); POTASSIUM,K 4.5 mmol/L (3.5-5.1); SODIUM,NA 139 mmol/L (136-148)
[2018-12-15] MEDS: Sodium Chloride 0.9% 1,000 ML IV SCH (04:38)
[2018-12-15] MEDS: Morphine 15 MG Tab.ER PO SCH (06:34)
[2018-12-15] MEDS: Gabapentin 800 MG Tab PO SCH (06:34)
[2018-12-15] MEDS ORDERED: Pantoprazole 40 MG Tab.CR PO SCH (07:30)
[2018-12-15] MEDS: Acetaminophen/HYDROcodone 325-5 MG Tab PO PRN (07:32)
[2018-12-15] MEDS: Insulin Aspart 100 Units/ML 3 ML Pen SUBCUT SCH ×2 (07:52→12:16)
--- NOTE | 2018-12-15 08:32 | PCM.DCSUM1 ---
<Durga Miller - Last Filed: 12/15/18 10:09> Discharge Summary - Hospital Course Free Text/Narrative:: 52 y/o male with history of DM2 and CAD who presented to the ER complaining of chest pain. Initial troponin was negative. He was admitted for ACS rule out. He was hydrated with IV NS. Overnight, serial troponins were negative. His symptoms had resolved. Echo results were pending. He was instructed to follow- up with his PCP. - Discharge Data Discharge Date: 12/15/18 Discharge Disposition: Home, Self-Care 01 Condition: Good - Patient Instructions Diet: Heart Healthy Diet, Drink 8-10+ Glasses/Day Activity: As Tolerated Notify Provider of: Fever, Increased Pain, Swelling and Redness, Nausea and/or Vomiting - Discharge Plan *PRESCRIPTION DRUG MONITORING PROGRAM REVIEWED*: Not Applicable *COPY OF PRESCRIPTION DRUG MONITORING REPORT IN PATIENT DOMENICO: Not Applicable Home Medications: Home Meds Aspirin [Ecotrin EC] 325 mg PO DAILY 11/08/17 [History] Carvedilol 6.25 mg PO BID 11/08/17 [History] Clopidogrel Bisulfate [Clopidogrel] 75 mg PO DAILY 11/08/17 [History] Gabapentin [Neurontin] 800 mg PO TID 11/08/17 [History] Insulin Regular, Human [NovoLIN R] 0 unit SUBCUT BIDAC 11/08/17 [History] Krill Oil/[place]-3/Dha/Epa [[place]-3 Krill Oil Softgel] 350 mg PO DAILY 11/08/17 [ History] Lisinopril 40 mg PO BID 11/08/17 [History] Methylphenidate HCl 20 mg PO DAILY 11/08/17 [History] Methylphenidate HCl [Methylphenidate ER] 54 mg PO DAILY 11/08/17 [History] Mometasone/Formoterol [[place]ulera 100-5 MCG] 1 puff IH DAILY PRN 11/08/17 [History] Morphine Sulfate [Morphine Sulfate ER] 15 mg PO TID 11/08/17 [History] atorvaSTATin Calcium [Atorvastatin Calcium] 40 mg PO DAILY 11/08/17 [History] hydroCHLOROthiazide [Hydrochlorothiazide] 25 mg PO DAILY 11/08/17 [History] metFORMIN [Glucophage] 850 mg PO BID 11/08/17 [History] oxyCODONE 5 mg PO Q6H PRN 11/08/17 [History] levoFLOXacin [Levaquin] 500 mg PO Q24H #5 tablet 11/10/17 [Rx] Patient Handouts: Nonspecific Chest Pain, [id number] - Discharge Summary/Plan Comment DC Time >30 min.: No - Patient Data Vitals - Most Recent: Last Vital Signs Temp 36.7 C 12/15/18 04:00 Pulse 62 12/15/18 04:00 Resp 18 12/15/18 04:00 BP 152/84 H 12/15/18 04:00 Pulse Ox 94 L 12/15/18 04:00 Weight - Most Recent: 101.196 kg I&O - Last 24 hours: Intake & Output 12/14/18 12/15/18 12/15/18 22:59 06:59 14:59 Intake Total 1060 Output Total 850 Balance 210 Lab Results - Last 24 hrs: Laboratory Results - last 24 hr 12/14/18 12/14/18 12/14/18 Range/Units 15:05 15:05 15:05 WBC 13.62 H (4.0-11.0) K/uL RBC 5.16 (4.50-5.90) M/uL Hgb 15.6 (13.0-17.0) g/dL Hct 46.5 (38.0-50.0) % MCV 90.1 (80.0-98.0) fL MCH 30.2 (27.0-32.0) pg MCHC 33.5 (31.0-37.0) g/dL RDW Std Deviation 43.5 (28.0-62.0) fl RDW Coeff of Lianne 14 (11.0-15.0) % Plt Count 156 (150-400) K/uL MPV 11.50 (7.40-12.00) fL Neut % (Auto) 75.8 (48.0-80.0) % Lymph % (Auto) 12.5 L (16.0-40.0) % [place] % (Auto) 6.8 (0.0-15.0) % Eos % (Auto) 4.7 (0.0-7.0) % Baso % (Auto) 0.2 (0.0-1.5) % Neut # (Auto) 10.3 H (1.4-5.7) K/uL Lymph # (Auto) 1.7 (0.6-2.4) K/uL [place] # (Auto) 0.9 H (0.0-0.8) K/uL Eos # (Auto) 0.6 (0.0-0.7) K/uL Baso # (Auto) 0.0 (0.0-0.1) K/uL Sodium 139 (136-148) mmol/L Potassium 5.2 H (3.5-5.1) mmol/L Chloride 105 (98-107) mmol/L Carbon Dioxide 25.5 (21.0-32.0) mmol/L BUN 8 (7.0-18.0) mg/dL Creatinine 0.9 (0.8-1.3) mg/dL Est Cr Clr Drug Dosing TNP Estimated GFR (MDRD) > 60.0 ml/min Glucose 201 H (74-106) mg/dL POC Glucose (60-110) mg/dL Hemoglobin A1c (4.5-6.2) % Calcium 9.3 (8.5-10.1) mg/dL Total Bilirubin 1.0 (0.2-1.0) mg/dL AST 7 L (15-37) IU/L ALT 32 (14-63) IU/L Alkaline Phosphatase 94 (46-116) U/L Creatine Kinase 61 (26-308) U/L Troponin I < 0.050 (0.000-0.056) ng/mL Total Protein 7.4 (6.4-8.2) g/dL Albumin 3.8 (3.4-5.0) g/dL Globulin 3.6 (2.6-4.0) g/dL Albumin/Globulin Ratio 1.1 (0.9-1.6) Triglycerides (0-200) mg/dL Cholesterol (50-200) mg/dL LDL Cholesterol, Calc (60-180) mg/dL VLDL Cholesterol (5-55) mg/dL HDL Cholesterol (40-60) mg/dL Cholesterol/HDL Ratio (3.3-6.0) TSH 3rd Generation 1.17 (0.36-3.74) uIU/mL Urine Color Urine Appearance Urine pH (5.0-8.0) Ur Specific [place] (1.001-1.035) Urine Protein (NEGATIVE) mg/dL Urine Glucose (UA) (NEGATIVE) mg/dL Urine Ketones (NEGATIVE) mg/dL Urine Occult Blood (NEGATIVE) Urine Nitrite (NEGATIVE) Urine Bilirubin (NEGATIVE) Urine Urobilinogen (<2.0) EU/dL Ur Leukocyte Esterase (NEGATIVE) 12/14/18 12/14/18 12/14/18 Range/Units 15:05 17:24 21:08 WBC (4.0-11.0) K/uL RBC (4.50-5.90) M/uL Hgb (13.0-17.0) g/dL Hct (38.0-50.0) % MCV (80.0-98.0) fL MCH (27.0-32.0) pg MCHC (31.0-37.0) g/dL RDW Std Deviation (28.0-62.0) fl RDW Coeff of Lianne (11.0-15.0) % Plt Count (150-400) K/uL MPV (7.40-12.00) fL Neut % (Auto) (48.0-80.0) % Lymph % (Auto) (16.0-40.0) % [place] % (Auto) (0.0-15.0) % Eos % (Auto) (0.0-7.0) % Baso % (Auto) (0.0-1.5) % Neut # (Auto) (1.4-5.7) K/uL Lymph # (Auto) (0.6-2.4) K/uL [place] # (Auto) (0.0-0.8) K/uL Eos # (Auto) (0.0-0.7) K/uL Baso # (Auto) (0.0-0.1) K/uL Sodium (136-148) mmol/L Potassium (3.5-5.1) mmol/L Chloride (98-107) mmol/L Carbon Dioxide (21.0-32.0) mmol/L BUN (7.0-18.0) mg/dL Creatinine (0.8-1.3) mg/dL Est Cr Clr Drug Dosing Estimated GFR (MDRD) ml/min Glucose (74-106) mg/dL POC Glucose 118 H (60-110) mg/dL Hemoglobin A1c 7.3 H (4.5-6.2) % Calcium (8.5-10.1) mg/dL Total Bilirubin (0.2-1.0) mg/dL AST (15-37) IU/L ALT (14-63) IU/L Alkaline Phosphatase (46-116) U/L Creatine Kinase (26-308) U/L Troponin I < 0.050 (0.000-0.056) ng/mL Total Protein (6.4-8.2) g/dL Albumin (3.4-5.0) g/dL Globulin (2.6-4.0) g/dL Albumin/Globulin Ratio (0.9-1.6) Triglycerides (0-200) mg/dL Cholesterol (50-200) mg/dL LDL Cholesterol, Calc (60-180) mg/dL VLDL Cholesterol (5-55) mg/dL HDL Cholesterol (40-60) mg/dL Cholesterol/HDL Ratio (3.3-6.0) TSH 3rd Generation (0.36-3.74) uIU/mL Urine Color Urine Appearance Urine pH (5.0-8.0) Ur Specific [place] (1.001-1.035) Urine Protein (NEGATIVE) mg/dL Urine Glucose (UA) (NEGATIVE) mg/dL Urine Ketones (NEGATIVE) mg/dL Urine Occult Blood (NEGATIVE) Urine Nitrite (NEGATIVE) Urine Bilirubin (NEGATIVE) Urine Urobilinogen (<2.0) EU/dL Ur Leukocyte Esterase (NEGATIVE) 12/14/18 12/14/18 12/15/18 Range/Units 21:24 21:30 02:50 WBC (4.0-11.0) K/uL RBC (4.50-5.90) M/uL Hgb (13.0-17.0) g/dL Hct (38.0-50.0) % MCV (80.0-98.0) fL MCH (27.0-32.0) pg MCHC (31.0-37.0) g/dL RDW Std Deviation (28.0-62.0) fl RDW Coeff of Lianne (11.0-15.0) % Plt Count (150-400) K/uL MPV (7.40-12.00) fL Neut % (Auto) (48.0-80.0) % Lymph % (Auto) (16.0-40.0) % [place] % (Auto) (0.0-15.0) % Eos % (Auto) (0.0-7.0) % Baso % (Auto) (0.0-1.5) % Neut # (Auto) (1.4-5.7) K/uL Lymph # (Auto) (0.6-2.4) K/uL [place] # (Auto) (0.0-0.8) K/uL Eos # (Auto) (0.0-0.7) K/uL Baso # (Auto) (0.0-0.1) K/uL Sodium (136-148) mmol/L Potassium (3.5-5.1) mmol/L Chloride (98-107) mmol/L Carbon Dioxide (21.0-32.0) mmol/L BUN (7.0-18.0) mg/dL Creatinine (0.8-1.3) mg/dL Est Cr Clr Drug Dosing Estimated GFR (MDRD) ml/min Glucose (74-106) mg/dL POC Glucose 192 H (60-110) mg/dL Hemoglobin A1c (4.5-6.2) % Calcium (8.5-10.1) mg/dL Total Bilirubin (0.2-1.0) mg/dL AST (15-37) IU/L ALT (14-63) IU/L Alkaline Phosphatase (46-116) U/L Creatine Kinase (26-308) U/L Troponin I < 0.050 (0.000-0.056) ng/mL Total Protein (6.4-8.2) g/dL Albumin (3.4-5.0) g/dL Globulin (2.6-4.0) g/dL Albumin/Globulin Ratio (0.9-1.6) Triglycerides (0-200) mg/dL Cholesterol (50-200) mg/dL LDL Cholesterol, Calc (60-180) mg/dL VLDL Cholesterol (5-55) mg/dL HDL Cholesterol (40-60) mg/dL Cholesterol/HDL Ratio (3.3-6.0) TSH 3rd Generation (0.36-3.74) uIU/mL Urine Color YELLOW Urine Appearance CLEAR Urine pH 7.0 (5.0-8.0) Ur Specific [place] 1.020 (1.001-1.035) Urine Protein NEGATIVE (NEGATIVE) mg/dL Urine Glucose (UA) NEGATIVE (NEGATIVE) mg/dL Urine Ketones NEGATIVE (NEGATIVE) mg/dL Urine Occult Blood NEGATIVE (NEGATIVE) Urine Nitrite NEGATIVE (NEGATIVE) Urine Bilirubin NEGATIVE (NEGATIVE) Urine Urobilinogen 0.2 (<2.0) EU/dL Ur Leukocyte Esterase NEGATIVE (NEGATIVE) 12/15/18 12/15/18 12/15/18 Range/Units 02:50 02:50 06:11 WBC 8.55 (4.0-11.0) K/uL RBC 4.46 L (4.50-5.90) M/uL Hgb 13.6 (13.0-17.0) g/dL Hct 40.6 (38.0-50.0) % MCV 91.0 (80.0-98.0) fL MCH 30.5 (27.0-32.0) pg MCHC 33.5 (31.0-37.0) g/dL RDW Std Deviation 43.7 (28.0-62.0) fl RDW Coeff of Lianne 14 (11.0-15.0) % Plt Count 129 L (150-400) K/uL MPV 11.90 (7.40-12.00) fL Neut % (Auto) (48.0-80.0) % Lymph % (Auto) (16.0-40.0) % [place] % (Auto) (0.0-15.0) % Eos % (Auto) (0.0-7.0) % Baso % (Auto) (0.0-1.5) % Neut # (Auto) (1.4-5.7) K/uL Lymph # (Auto) (0.6-2.4) K/uL [place] # (Auto) (0.0-0.8) K/uL Eos # (Auto) (0.0-0.7) K/uL Baso # (Auto) (0.0-0.1) K/uL Sodium 139 (136-148) mmol/L Potassium 4.5 (3.5-5.1) mmol/L Chloride 105 (98-107) mmol/L Carbon Dioxide 25.3 (21.0-32.0) mmol/L BUN 12 (7.0-18.0) mg/dL Creatinine 0.8 (0.8-1.3) mg/dL Est Cr Clr Drug Dosing 105.56 Estimated GFR (MDRD) > 60.0 ml/min Glucose 169 H (74-106) mg/dL POC Glucose 127 H (60-110) mg/dL Hemoglobin A1c (4.5-6.2) % Calcium 8.6 (8.5-10.1) mg/dL Total Bilirubin (0.2-1.0) mg/dL AST (15-37) IU/L ALT (14-63) IU/L Alkaline Phosphatase (46-116) U/L Creatine Kinase (26-308) U/L Troponin I (0.000-0.056) ng/mL Total Protein (6.4-8.2) g/dL Albumin (3.4-5.0) g/dL Globulin (2.6-4.0) g/dL Albumin/Globulin Ratio (0.9-1.6) Triglycerides 222 H (0-200) mg/dL Cholesterol 156 (50-200) mg/dL LDL Cholesterol, Calc 83 (60-180) mg/dL VLDL Cholesterol 44 (5-55) mg/dL HDL Cholesterol 29 L (40-60) mg/dL Cholesterol/HDL Ratio 5.4 (3.3-6.0) TSH 3rd Generation (0.36-3.74) uIU/mL Urine Color Urine Appearance Urine pH (5.0-8.0) Ur Specific [place] (1.001-1.035) Urine Protein (NEGATIVE) mg/dL Urine Glucose (UA) (NEGATIVE) mg/dL Urine Ketones (NEGATIVE) mg/dL Urine Occult Blood (NEGATIVE) Urine Nitrite (NEGATIVE) Urine Bilirubin (NEGATIVE) Urine Urobilinogen (<2.0) EU/dL Ur Leukocyte Esterase (NEGATIVE) Med Orders - Current: Current Medications Acetaminophen (Tylenol) 650 mg PO Q4H PRN PRN Reason: Pain (Mild 1-3)/fever Hydrocodone Bitart/Acetaminophen ([place] 325-5 Mg) 1 tab PO Q4H PRN PRN Reason: Pain (moderate 4-6) Last Admin: 12/15/18 07:32 Dose: 1 tab Atorvastatin Calcium (Lipitor) 40 mg PO DAILY [facility] Carvedilol (Coreg) 6.25 mg PO BID [facility] Last Admin: 12/14/18 21:27 Dose: 6.25 mg Clopidogrel Bisulfate (Plavix) 75 mg PO DAILY [facility] Enoxaparin Sodium (Lovenox) 30 mg SUBCUT Q24H [facility] Last Admin: 12/14/18 17:24 Dose: 30 mg Gabapentin (Neurontin) 800 mg PO TID [facility] Last Admin: 12/15/18 06:34 Dose: 800 mg Sodium Chloride (Normal Saline) 1,000 mls @ 125 mls/hr IV ASDIRECTED [facility] Last Admin: 12/15/18 04:38 Dose: 125 mls/hr Insulin Aspart (Novolog) 0 unit SUBCUT TIDAC [facility]; Protocol Last Admin: 12/15/18 07:52 Dose: Not Given Morphine Sulfate (Ms Contin) 15 mg PO TID [facility] Last Admin: 12/15/18 06:34 Dose: 15 mg Nitroglycerin (Nitrostat) 0.4 mg SL Q5M PRN PRN Reason: Chest Pain Non-Formulary Medication (Mometasone/Formoterol) 1 puff IH DAILY PRN PRN Reason: Shortness of Breath Ondansetron HCl (Zofran Odt) 4 mg PO Q4H PRN PRN Reason: nausea, able to take PO Ondansetron HCl (Zofran) 4 mg IVPUSH Q4H PRN PRN Reason: Nausea Pantoprazole Sodium (Protonix) 40 mg PO ACBREAKFAST [facility] Last Admin: 12/15/18 06:35 Dose: 40 mg Sodium Chloride (Saline Flush) 10 ml FLUSH ASDIRECTED PRN PRN Reason: Keep Vein Open Sodium Chloride (Saline Flush) 2.5 ml FLUSH ASDIRECTED PRN PRN Reason: Keep Vein Open Temazepam (Restoril) 15 mg PO BEDTIME PRN PRN Reason: Sleep Discontinued Medications Aspirin (Aspirin) 324 mg PO ONETIME ONE Stop: 12/14/18 15:15 Last Admin: 12/14/18 15:19 Dose: 324 mg Nitroglycerin (Nitrostat) 0.4 mg SL Q5M PRN PRN Reason: Chest Pain Last Admin: 12/14/18 15:31 Dose: 0.4 mg <Miky Barriga - Last Filed: 12/15/18 19:44> - Patient Data Vitals - Most Recent: Last Vital Signs Temp 36.1 C 12/15/18 08:00 Pulse 66 12/15/18 08:44 Resp 16 12/15/18 08:00 BP 179/96 H 12/15/18 08:44 Pulse Ox 97 12/15/18 08:00 I&O - Last 24 hours: Intake & Output 12/15/18 12/15/18 12/15/18 06:59 14:59 22:59 Intake Total 1060 Output Total 850 Balance 210 Lab Results - Last 24 hrs: Laboratory Results - last 24 hr 12/14/18 12/14/18 12/14/18 Range/Units 21:08 21:24 21:30 WBC (4.0-11.0) K/uL RBC (4.50-5.90) M/uL Hgb (13.0-17.0) g/dL Hct (38.0-50.0) % MCV (80.0-98.0) fL MCH (27.0-32.0) pg MCHC (31.0-37.0) g/dL RDW Std Deviation (28.0-62.0) fl RDW Coeff of Lianne (11.0-15.0) % Plt Count (150-400) K/uL MPV (7.40-12.00) fL Sodium (136-148) mmol/L Potassium (3.5-5.1) mmol/L Chloride (98-107) mmol/L Carbon Dioxide (21.0-32.0) mmol/L BUN (7.0-18.0) mg/dL Creatinine (0.8-1.3) mg/dL Est Cr Clr Drug Dosing mL/min Estimated GFR (MDRD) ml/min Glucose (74-106) mg/dL POC Glucose 192 H (60-110) mg/dL Calcium (8.5-10.1) mg/dL Troponin I < 0.050 (0.000-0.056) ng/mL Triglycerides (0-200) mg/dL Cholesterol (50-200) mg/dL LDL Cholesterol, Calc (60-180) mg/dL VLDL Cholesterol (5-55) mg/dL HDL Cholesterol (40-60) mg/dL Cholesterol/HDL Ratio (3.3-6.0) Urine Color YELLOW Urine Appearance CLEAR Urine pH 7.0 (5.0-8.0) Ur Specific [place] 1.020 (1.001-1.035) Urine Protein NEGATIVE (NEGATIVE) mg/dL Urine Glucose (UA) NEGATIVE (NEGATIVE) mg/dL Urine Ketones NEGATIVE (NEGATIVE) mg/dL Urine Occult Blood NEGATIVE (NEGATIVE) Urine Nitrite NEGATIVE (NEGATIVE) Urine Bilirubin NEGATIVE (NEGATIVE) Urine Urobilinogen 0.2 (<2.0) EU/dL Ur Leukocyte Esterase NEGATIVE (NEGATIVE) 12/15/18 12/15/18 12/15/18 Range/Units 02:50 02:50 02:50 WBC 8.55 (4.0-11.0) K/uL RBC 4.46 L (4.50-5.90) M/uL Hgb 13.6 (13.0-17.0) g/dL Hct 40.6 (38.0-50.0) % MCV 91.0 (80.0-98.0) fL MCH 30.5 (27.0-32.0) pg MCHC 33.5 (31.0-37.0) g/dL RDW Std Deviation 43.7 (28.0-62.0) fl RDW Coeff of Lianne 14 (11.0-15.0) % Plt Count 129 L (150-400) K/uL MPV 11.90 (7.40-12.00) fL Sodium 139 (136-148) mmol/L Potassium 4.5 (3.5-5.1) mmol/L Chloride 105 (98-107) mmol/L Carbon Dioxide 25.3 (21.0-32.0) mmol/L BUN 12 (7.0-18.0) mg/dL Creatinine 0.8 (0.8-1.3) mg/dL Est Cr Clr Drug Dosing 105.56 mL/min Estimated GFR (MDRD) > 60.0 ml/min Glucose 169 H (74-106) mg/dL POC Glucose (60-110) mg/dL Calcium 8.6 (8.5-10.1) mg/dL Troponin I < 0.050 (0.000-0.056) ng/mL Triglycerides 222 H (0-200) mg/dL Cholesterol 156 (50-200) mg/dL LDL Cholesterol, Calc 83 (60-180) mg/dL VLDL Cholesterol 44 (5-55) mg/dL HDL Cholesterol 29 L (40-60) mg/dL Cholesterol/HDL Ratio 5.4 (3.3-6.0) Urine Color Urine Appearance Urine pH (5.0-8.0) Ur Specific [place] (1.001-1.035) Urine Protein (NEGATIVE) mg/dL Urine Glucose (UA) (NEGATIVE) mg/dL Urine Ketones (NEGATIVE) mg/dL Urine Occult Blood (NEGATIVE) Urine Nitrite (NEGATIVE) Urine Bilirubin (NEGATIVE) Urine Urobilinogen (<2.0) EU/dL Ur Leukocyte Esterase (NEGATIVE) 12/15/18 12/15/18 Range/Units 06:11 11:20 WBC (4.0-11.0) K/uL RBC (4.50-5.90) M/uL Hgb (13.0-17.0) g/dL Hct (38.0-50.0) % MCV (80.0-98.0) fL MCH (27.0-32.0) pg MCHC (31.0-37.0) g/dL RDW Std Deviation (28.0-62.0) fl RDW Coeff of Lianne (11.0-15.0) % Plt Count (150-400) K/uL MPV (7.40-12.00) fL Sodium (136-148) mmol/L Potassium (3.5-5.1) mmol/L Chloride (98-107) mmol/L Carbon Dioxide (21.0-32.0) mmol/L BUN (7.0-18.0) mg/dL Creatinine (0.8-1.3) mg/dL Est Cr Clr Drug Dosing mL/min Estimated GFR (MDRD) ml/min Glucose (74-106) mg/dL POC Glucose 127 H 180 H (60-110) mg/dL Calcium (8.5-10.1) mg/dL Troponin I (0.000-0.056) ng/mL Triglycerides (0-200) mg/dL Cholesterol (50-200) mg/dL LDL Cholesterol, Calc (60-180) mg/dL VLDL Cholesterol (5-55) mg/dL HDL Cholesterol (40-60) mg/dL Cholesterol/HDL Ratio (3.3-6.0) Urine Color Urine Appearance Urine pH (5.0-8.0) Ur Specific [place] (1.001-1.035) Urine Protein (NEGATIVE) mg/dL Urine Glucose (UA) (NEGATIVE) mg/dL Urine Ketones (NEGATIVE) mg/dL Urine Occult Blood (NEGATIVE) Urine Nitrite (NEGATIVE) Urine Bilirubin (NEGATIVE) Urine Urobilinogen (<2.0) EU/dL Ur Leukocyte Esterase (NEGATIVE) Med Orders - Current: Current Medications Discontinued Medications Acetaminophen (Tylenol) 650 mg PO Q4H PRN PRN Reason: Pain (Mild 1-3)/fever Hydrocodone Bitart/Acetaminophen ([place] 325-5 Mg) 1 tab PO Q4H PRN PRN Reason: Pain (moderate 4-6) Last Admin: 12/15/18 07:32 Dose: 1 tab Aspirin (Aspirin) 324 mg PO ONETIME ONE Stop: 12/14/18 15:15 Last Admin: 12/14/18 15:19 Dose: 324 mg Atorvastatin Calcium (Lipitor) 40 mg PO DAILY [facility] Last Admin: 12/15/18 08:44 Dose: 40 mg Carvedilol (Coreg) 6.25 mg PO BID [facility] Last Admin: 12/15/18 08:44 Dose: 6.25 mg Clopidogrel Bisulfate (Plavix) 75 mg PO DAILY [facility] Last Admin: 12/15/18 08:44 Dose: 75 mg Enoxaparin Sodium (Lovenox) 30 mg SUBCUT Q24H [facility] Last Admin: 12/14/18 17:24 Dose: 30 mg Gabapentin (Neurontin) 800 mg PO TID [facility] Last Admin: 12/15/18 06:34 Dose: 800 mg Sodium Chloride (Normal Saline) 1,000 mls @ 125 mls/hr IV ASDIRECTED [facility] Last Admin: 12/15/18 04:38 Dose: 125 mls/hr Insulin Aspart (Novolog) 0 unit SUBCUT TIDAC [facility]; Protocol Last Admin: 12/15/18 12:16 Dose: 2 units Morphine Sulfate (Ms Contin) 15 mg PO TID [facility] Last Admin: 12/15/18 06:34 Dose: 15 mg Nitroglycerin (Nitrostat) 0.4 mg SL Q5M PRN PRN Reason: Chest Pain Last Admin: 12/14/18 15:31 Dose: 0.4 mg Nitroglycerin (Nitrostat) 0.4 mg SL Q5M PRN PRN Reason: Chest Pain Non-Formulary Medication (Mometasone/Formoterol) 1 puff IH DAILY PRN PRN Reason: Shortness of Breath Ondansetron HCl (Zofran Odt) 4 mg PO Q4H PRN PRN Reason: nausea, able to take PO Ondansetron HCl (Zofran) 4 mg IVPUSH Q4H PRN PRN Reason: Nausea Pantoprazole Sodium (Protonix) 40 mg PO ACBREAKFAST [facility] Last Admin: 12/15/18 06:35 Dose: 40 mg Sodium Chloride (Saline Flush) 10 ml FLUSH ASDIRECTED PRN PRN Reason: Keep Vein Open Sodium Chloride (Saline Flush) 2.5 ml FLUSH ASDIRECTED PRN PRN Reason: Keep Vein Open Temazepam (Restoril) 15 mg PO BEDTIME PRN PRN Reason: Sleep - Free Text/Narrative Note: I have evaluated the patient. I have discussed findings and treatment plan with resident. I agree with the assessment and plan outlined in the following note.
[2018-12-15] MEDS: Carvedilol 6.25 MG Tab PO SCH (08:44)
[2018-12-15 08:45] VITALS: BP 179/96; PULSE 66
[2018-12-15] MEDS ORDERED: Clopidogrel 75 MG Tab PO SCH (09:00)
[2018-12-15] MEDS ORDERED: atorvaSTATin 40 MG Tab PO SCH (09:00)
--- NOTE | 2018-12-16 12:11 | ECHO ---
The echocardiogram report can be seen in this patient's EMR (Electronic Medical Records) in the Reports section. The echocardiogram report has also been scanned into PACS and can be seen there as well. PATRIA
== END 2018-12-15 13:12 | disposition home or self-care (01) ==
LOC: MW.ED 14:55 → MW.MS 16:01
PROVIDERS: ADMIT Internal Medicine; ATTEND Internal Medicine
DX: R07.9 Chest pain, unspecified (principal); I25.10 Atherosclerotic heart disease of native coronary artery without angina pectoris; E11.9 Type 2 diabetes mellitus without complications; G89.29 Other chronic pain; R53.1 Weakness; I10 Essential (primary) hypertension; E78.00 Pure hypercholesterolemia, unspecified; J45.909 Unspecified asthma, uncomplicated; M19.90 Unspecified osteoarthritis, unspecified site; D72.829 Elevated white blood cell count, unspecified; Z79.82 Long term (current) use of aspirin; Z79.899 Other long term (current) drug therapy; Z79.4 Long term (current) use of insulin; Z79.891 Long term (current) use of opiate analgesic; Z87.891 Personal history of nicotine dependence
CPT/HCPCS: 36415; 71045; 80048; 80053; 80061; 81003; 82550; 82962; 83036; 84443; 84484; 85025; 85027; 87070; 93005; 93306; 96372; 99285; A9270; G0378; J1650; J1815; J7040; 87077; 87186

== ENCOUNTER 2019-10-17 20:23 | Emergency (ER) | payer MEDICARE, MEDICAID ==
[2019-10-17 20:45] VITALS: BP 141/96; PULSE 95
[2019-10-17] MEDS ORDERED: Sodium Chloride 0.9% 2.5 ML Syringe FLUSH PRN (20:57)
[2019-10-17] MEDS ORDERED: Sodium Chloride 0.9% 10 ML SDV IV PRN (20:57)
[2019-10-17] MEDS ORDERED: Diphtheria,Pertussis(Acell),Tetanus Vaccine 0.5 ML Syringe IM ONE (20:57)
[2019-10-17] MEDS ORDERED: Sodium Chloride 0.9% 10 ML Syringe FLUSH PRN (20:57)
[2019-10-17] MEDS ORDERED: ceFAZolin 1 GM in Premix Bag 1 BAG IV ONE (20:58)
[2019-10-17] MEDS ORDERED: Vancomycin 2 GM in Sodium Chloride 0.9% 500 ML IV ONE (20:58)
--- NOTE | 2019-10-17 21:00 | EDM.PDOC ---
ED HPI GENERAL MEDICAL PROBLEM - General Chief Complaint: Laceration Stated Complaint: LACERATION ON LEFT FINGER Time Seen by Provider: 10/17/19 20:33 Source of Information: Reports: Patient History Limitations: Reports: No Limitations - History of Present Illness INITIAL COMMENTS - FREE TEXT/NARRATIVE: 53-year-old male with past medical history of myocardial infarction, hyperlipidemia, diabetes mellitus presenting with a finger injury. Yesterday evening, the patient was using a high-pressure water unit when he accidentally injected water into the left 4th finger. Since then, he has noted worsening pain, redness, and swelling to the left middle finger. Denies fever, chills, nausea, or vomiting. He presents with concerns of infection in the finger. No self treatment prior to arrival. No other complaints. Left Finger-Ring Pain Score (Numeric/FACES): 9 - Related Data Allergies Allergy/AdvReac Type Severity Reaction Status Date / Time No Known Allergies Allergy Verified 10/17/19 20:30 Home Meds: Home Meds Aspirin [Ecotrin EC] 325 mg PO DAILY 11/08/17 [History] Clopidogrel Bisulfate [Clopidogrel] 75 mg PO DAILY 11/08/17 [History] Gabapentin [Neurontin] 800 mg PO TID 11/08/17 [History] Insulin Regular, Human [NovoLIN R] 5 - 10 unit SUBCUT BIDAC 11/08/17 [History] Krill Oil/[place]-3/Dha/Epa [Axtell-3 Krill Oil Softgel] 350 mg PO DAILY 11/08/17 [ History] Lisinopril 40 mg PO BID 11/08/17 [History] Methylphenidate HCl 20 mg PO DAILY 11/08/17 [History] Methylphenidate HCl [Methylphenidate ER] 54 mg PO DAILY 11/08/17 [History] Mometasone/Formoterol [Dulera 100-5 MCG] 1 puff IH DAILY PRN 11/08/17 [History] Morphine Sulfate [Morphine Sulfate ER] 15 mg PO TID 11/08/17 [History] atorvaSTATin Calcium [Atorvastatin Calcium] 60 mg PO DAILY 11/08/17 [History] carvediloL [Carvedilol] 6.25 mg PO BID 11/08/17 [History] hydroCHLOROthiazide [Hydrochlorothiazide] 25 mg PO DAILY 11/08/17 [History] metFORMIN [Glucophage] 850 mg PO BID 11/08/17 [History] oxyCODONE 5 mg PO Q6H PRN 11/08/17 [History] Past Medical History - Past Health History Medical/Surgical History: Denies Medical/Surgical History HEENT History: Reports: Other (See Below) Other HEENT History: broken nose, sinus issues Cardiovascular History: Reports: High Cholesterol, Hypertension, [place] Respiratory History: Reports: Asthma, Pneumonia, Recurrent Gastrointestinal History: Reports: None Genitourinary History: Reports: None Musculoskeletal History: Reports: Arthritis, Back Pain, Chronic, Fracture Other Musculoskeletal History: Chronic pain Neurological History: Reports: Concussion, Neuropathy, Diabetic Psychiatric History: Reports: None Other Psychiatric History: "Learning disabilities" Endocrine/Metabolic History: Reports: Diabetes, Type II Hematologic History: Reports: None Immunologic History: Reports: None Oncologic (Cancer) History: Reports: None Dermatologic History: Reports: Cellulitis - Infectious Disease History Infectious Disease History: Reports: Chicken Pox, Other (See Below) Other Infectious Disease History: MRSA - Past Surgical History HEENT Surgical History: Reports: None Cardiovascular Surgical History: Reports: Vascular Surgery Respiratory Surgical History: Reports: None GI Surgical History: Reports: None Male Surgical History: Reports: Vasectomy Neurological Surgical History: Reports: None Musculoskeletal Surgical History: Reports: Other (See Below) Other Musculoskeletal Surgeries/Procedures:: Hx of 32 sugeries, titanium in bilateral knees Dermatological Surgical History: Reports: None Social & Family History - Family History Family Medical History: Noncontributory - Tobacco Use Smoking Status *Q: Current Every Day Smoker Years of Tobacco use: 8 Packs/Tins Daily: 0 Used Tobacco, but Quit: No Second Hand Smoke Exposure: Yes - Caffeine Use Caffeine Use: Reports: Coffee Other Caffeine Use: 1 cup every other day - Recreational Drug Use Recreational Drug Use: No ED ROS GENERAL - Review of Systems Review Of Systems: See Below Constitutional: Denies: Fever, Chills Respiratory: Denies: Shortness of Breath GI/Abdominal: Denies: Nausea, Vomiting Musculoskeletal: Reports: Hand Pain, Joint Pain, Joint Swelling. Denies: Arm Pain ED EXAM, SKIN/RASH Exam: See Below Text/Narrative:: Vital signs reviewed. Nursing notes reviewed. Constitutional: Awake, alert, non-distressed. Head: Normocephalic, atraumatic. Eyes: EOMI, conjunctiva normal, no discharge, no scleral icterus. Ears, Nose, Throat: External ears and nose normal, moist oral mucosa. Cardiovascular: 2+ radial pulse, capillary refill less than 2 seconds. Pulmonary: normal work of breathing, no accessory muscle use. Musculoskeletal: No deformities. Left ring finger is swollen, erythematous, and tender to the touch. There is an approximately 2.5 cm stellate laceration over the PIP joint. No drainage appreciated. Integumentary: Appropriate color for ethnicity, warm, dry, no pallor or jaundice , no rash. Neurologic: Alert, answering questions appropriately, normal speech, no facial droop, moving all extremities well. Sensation intact to light touch in the left ring finger. Psychiatric: Appropriate mood and affect, normal thought process. Course - Vital Signs Text/Narrative:: Patient afebrile, hemodynamically stable, looks nontoxic. Immediately concern for high-pressure injection injury and to the left ring finger is concerning for infection. IV access established and labs sent. Lactate mildly elevated 2.1. Potassium is 5.2. Glucose 188. Remainder labs are reassuring. Hand x-rays demonstrate a small amount of air in the left fourth digit. Given IV vancomycin, Ancef, tetanus booster. We do not have orthopedic surgery available at our hospital. Patient will need to be transferred to [facility] in [place], [place] for specialist orthopedic consultation given high-pressure injection injury, high likelihood patient will need washout in the operating room. I spoke with the accepting emergency physician Dr. Barrera who agrees to admit. Transferred to the ground EMS crew. Last Recorded V/S: Last Vital Signs Temp 37.0 C 10/17/19 20:35 Pulse 95 10/17/19 20:35 Resp 16 10/17/19 20:35 BP 141/96 H 10/17/19 20:35 Pulse Ox 95 10/17/19 20:35 - Orders/Labs/Meds Orders: Active Orders 24 hr Category Date Time Status Vaccines to be Administered [RC] PER UNIT ROUTINE Care 10/17/19 20:57 Active Peripheral IV Insertion Adult [OM.PC] Stat Oth 10/17/19 20:57 Ordered Labs: Laboratory Tests 10/17/19 10/17/19 10/17/19 Range/Units 21:20 21:20 21:20 WBC 11.00 (4.0-11.0) K/uL RBC 4.80 (4.50-5.90) M/uL Hgb 14.7 (13.0-17.0) g/dL Hct 44.8 (38.0-50.0) % MCV 93.3 (80.0-98.0) fL MCH 30.6 (27.0-32.0) pg MCHC 32.8 (31.0-37.0) g/dL RDW Std Deviation 46.4 (28.0-62.0) fl RDW Coeff of Lianne 14 (11.0-15.0) % Plt Count 184 (150-400) K/uL MPV 11.50 (7.40-12.00) fL Neut % (Auto) 57.7 (48.0-80.0) % Lymph % (Auto) 24.5 (16.0-40.0) % [place] % (Auto) 8.8 (0.0-15.0) % Eos % (Auto) 8.7 H (0.0-7.0) % Baso % (Auto) 0.3 (0.0-1.5) % Neut # (Auto) 6.4 H (1.4-5.7) K/uL Lymph # (Auto) 2.7 H (0.6-2.4) K/uL [place] # (Auto) 1.0 H (0.0-0.8) K/uL Eos # (Auto) 1.0 H (0.0-0.7) K/uL Baso # (Auto) 0.0 (0.0-0.1) K/uL Nucleated RBC % 0.0 /100WBC Nucleated RBCs # 0 K/uL Lactate 2.1 H* (0.20-2.00) mmol/L Sodium 138 (136-148) mmol/L Potassium 5.2 H (3.5-5.1) mmol/L Chloride 101 (98-107) mmol/L Carbon Dioxide 23.9 (21.0-32.0) mmol/L BUN 19 H (7.0-18.0) mg/dL Creatinine 1.2 (0.8-1.3) mg/dL Est Cr Clr Drug Dosing 69.55 mL/min Estimated GFR (MDRD) > 60.0 ml/min Glucose 188 H (74-106) mg/dL Calcium 9.5 (8.5-10.1) mg/dL Total Bilirubin 0.7 (0.2-1.0) mg/dL AST 19 (15-37) IU/L ALT 37 (14-63) IU/L Alkaline Phosphatase 102 (46-116) U/L Total Protein 7.4 (6.4-8.2) g/dL Albumin 4.2 (3.4-5.0) g/dL Globulin 3.2 (2.6-4.0) g/dL Albumin/Globulin Ratio 1.3 (0.9-1.6) Meds: Medications Discontinued Medications Generic Name Dose Route Start Last Admin Trade Name Freq PRN Reason Stop Dose Admin Diphtheria/Tetanus/Acell Pertussis 0.5 ml 10/17/19 20:57 10/17/19 21:20 Adacel IM 10/17/19 20:58 0.5 ml .ONCE ONE Administration Vancomycin HCl 2 gm/ Sodium 500 mls @ 333 mls/hr 10/17/19 20:58 10/17/19 21: 38 Chloride IV 10/17/19 22:28 333 mls/hr ONETIME ONE Administration Cefazolin Sodium/Dextrose 1 gm 50 mls @ 100 mls/hr 10/17/19 20:58 10/17/19 21 :20 / Premix IV 10/17/19 21:27 100 mls/hr ONETIME ONE Administration Lactated Ringer's 1,000 mls @ 1,000 mls/hr 10/17/19 21:30 10/17/19 21:48 Ringers, Lactated IV 10/17/19 22:29 1,000 mls/hr .BOLUS ONE Administration Sodium Chloride 10 ml 10/17/19 20:57 10/17/19 21:21 Saline Flush FLUSH 10 ml ASDIRECTED PRN Administration Keep Vein Open Sodium Chloride 2.5 ml 10/17/19 20:57 10/17/19 21:21 Saline Flush FLUSH 2.5 ml ASDIRECTED PRN Administration Keep Vein Open Sodium Chloride 10 ml 10/17/19 20:57 10/17/19 21:21 Normal Saline IV 10 ml ASDIRECTED PRN Administration IV Use Departure - Departure Time of Disposition: 20:59 Disposition: DC/Tfer to Acute Hospital 02 Condition: Good Clinical Impression: High-pressure injection injury of finger of left hand Qualifiers: Encounter type: initial encounter Qualified Code(s): S69.82XA - Other specified injuries of left wrist, hand and finger(s), initial encounter - Discharge Information Referrals: PCP,None [Primary Care Provider] - Forms: ED Department Discharge Sepsis Event Note (ED) - Evaluation Sepsis Screening Result: No Definite Risk - Focused Exam Vital Signs: Vital Signs Temp Pulse Resp BP Pulse Ox 10/17/19 20:35 37.0 C 95 16 141/96 H 95 - My Orders Last 24 Hours: My Active Orders 10/17/19 20:57 Vaccines to be Administered [RC] PER UNIT ROUTINE Peripheral IV Insertion Adult [OM.PC] Stat - Assessment/Plan Last 24 Hours: My Active Orders 10/17/19 20:57 Vaccines to be Administered [RC] PER UNIT ROUTINE Peripheral IV Insertion Adult [OM.PC] Stat
[2019-10-17] MEDS ORDERED: Lactated Ringers 1,000 ML IV ONE (21:30)
--- NOTE | 2019-10-17 21:32 | CR ---
Indication: High pressure injection to finger yesterday Technique: Three views left hand Comparison: None Findings: Bones: Alignment is normal. No fractures or bone lesions. Joint spaces: Unremarkable. Soft tissues: Small amount of air within the 4th finger. Impression: Small amount of air within the 4th finger. This could be due to an injection injury or infection. No osseous abnormality. Dictated by Maude Gilbert MD @ Oct 17 2019 9:31PM Signed by Dr. Maude Gilbert @ Oct 17 2019 9:31PM
[2019-10-17 21:47] LABS: BLOOD UREA NITROGEN,BUN 19 mg/dL (7.0-18.0); CARBON DIOXIDE,CO2 23.9 mmol/L (21.0-32.0); CHLORIDE,CL 101 mmol/L (98-107); GLUCOSE RANDOM 188 mg/dL (74-106); POTASSIUM,K 5.2 mmol/L (3.5-5.1); SODIUM,NA 138 mmol/L (136-148)
== END 2019-10-17 22:46 ==
LOC: MW.ED 20:23
DX: S69.82XA Other specified injuries of left wrist, hand and finger(s), initial encounter (principal); I10 Essential (primary) hypertension; E11.40 Type 2 diabetes mellitus with diabetic neuropathy, unspecified; E78.00 Pure hypercholesterolemia, unspecified; I25.2 Old myocardial infarction; F17.210 Nicotine dependence, cigarettes, uncomplicated; Z79.82 Long term (current) use of aspirin; Z79.02 Long term (current) use of antithrombotics/antiplatelets; Z79.899 Other long term (current) drug therapy; Z79.4 Long term (current) use of insulin; Z23 Encounter for immunization; X58.XXXA Exposure to other specified factors, initial encounter
CPT/HCPCS: 36415; 73130; 80053; 83605; 85025; 90471; 90715; 96365; 96367; 99285; J0690; J3370; J7040; J7050; J7120; 99283

== ENCOUNTER 2019-12-10 02:39 | Emergency (ER) | payer MEDICARE, MEDICAID ==
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
[2019-12-10] MEDS ORDERED: Acetaminophen/oxyCODONE 325-5 MG Tab PO ONE (03:17)
[2019-12-10] MEDS ORDERED: Lidocaine 5% Oint 35.44 GM Tube TOP ONE (03:22)
[2019-12-10] MEDS ORDERED: Carvedilol 6.25 MG Tab PO ONE (03:23)
[2019-12-10] MEDS ORDERED: Hydrochlorothiazide 25 MG Tab PO ONE (03:23)
[2019-12-10] MEDS ORDERED: Lisinopril 10 MG Tab PO ONE (03:23)
[2019-12-10] MEDS ORDERED: metFORMIN 500 MG Tab PO ONE (03:23)
[2019-12-10] MEDS ORDERED: Gabapentin 300 MG Cap PO ONE (03:23)
[2019-12-10] MEDS ORDERED: atorvaSTATin 40 MG Tab PO ONE (03:23)
[2019-12-10] MEDS ORDERED: Aspirin 325 MG Tab PO ONE (03:23)
[2019-12-10] MEDS ORDERED: Clopidogrel 75 MG Tab PO ONE (03:23)
[2019-12-10 04:28] VITALS: BP 140/100; PULSE 85
== END 2019-12-10 06:51 | disposition home or self-care (01) ==
LOC: MW.ED 02:39
DX: T23.261A Burn of second degree of back of right hand, initial encounter (principal); T20.16XA Burn of first degree of forehead and cheek, initial encounter; T24.131A Burn of first degree of right lower leg, initial encounter; E78.00 Pure hypercholesterolemia, unspecified; I10 Essential (primary) hypertension; I25.2 Old myocardial infarction; M19.90 Unspecified osteoarthritis, unspecified site; E11.40 Type 2 diabetes mellitus with diabetic neuropathy, unspecified; J45.909 Unspecified asthma, uncomplicated; Z79.4 Long term (current) use of insulin; Z79.899 Other long term (current) drug therapy; Z79.82 Long term (current) use of aspirin; Z79.02 Long term (current) use of antithrombotics/antiplatelets; X08.8XXA Exposure to other specified smoke, fire and flames, initial encounter
CPT/HCPCS: 99283; A9270

== ENCOUNTER 2020-03-23 23:14 | Emergency (ER) | payer MEDICARE, MEDICAID ==
[2020-03-23] MEDS ORDERED: Lidocaine 1% with EPINEPHrine 1:100,000 20 ML MDV INJECT ONE (23:44)
[2020-03-23] MEDS ORDERED: Cephalexin 500 MG Cap PO ONE (23:49)
[2020-03-23] MEDS ORDERED: Sulfamethoxazole/Trimethoprim 800-160 MG Tab PO ONE (23:50)
--- NOTE | 2020-03-23 23:51 | EDM.PDOC ---
ED HPI GENERAL MEDICAL PROBLEM - General Chief Complaint: Upper Extremity Injury/Pain Stated Complaint: RIGHT ARM INFECTION Time Seen by Provider: 03/23/20 23:37 - History of Present Illness INITIAL COMMENTS - FREE TEXT/NARRATIVE: 54-year-old male with multiple medical problems presenting with increased swelling of the right olecranon now with some purulent drainage since last night no fevers no chills range of motion of the elbow is normal. He states that he feels as well. He says that he has had some aching at the area for the last couple months but has gotten significantly worse over the last 5 days and then starting yesterday began to drain thick yellow fluid. Again patient otherwise feels well no exacerbating or alleviating factors radiation or other associated symptoms. right elbow Pain Score (Numeric/FACES): 9 - Related Data Allergies Allergy/AdvReac Type Severity Reaction Status Date / Time No Known Allergies Allergy Verified 03/23/20 23:28 Home Meds: Home Meds Krill Oil/Woodruff-3/Dha/Epa [Woodruff-3 Krill Oil Softgel] 350 mg PO DAILY 11/08/17 [History] Methylphenidate HCl 20 mg PO DAILY 11/08/17 [History] Methylphenidate HCl [Methylphenidate ER] 54 mg PO DAILY 11/08/17 [History] Morphine Sulfate [Morphine Sulfate ER] 30 mg PO ASDIRECTED 11/08/17 [History] oxyCODONE 5 mg PO Q6H PRN 11/08/17 [History] Aspirin [Ecotrin EC] 325 mg PO DAILY 30 Days #30 tab.ec 12/10/19 [Rx] Clopidogrel Bisulfate [Clopidogrel] 75 mg PO DAILY 30 Days #30 12/10/19 [Rx] Gabapentin [Neurontin] 800 mg PO TID 30 Days #30 12/10/19 [Rx] Insulin Regular, Human [NovoLIN R] 5 - 10 unit SQ BIDAC 30 Days #10 ml 12/10/19 [Rx] Magnesium 30 mg PO DAILY 30 Days #30 12/10/19 [Rx] Mometasone/Formoterol [Dulera 100-5 MCG] 1 puff IH DAILY PRN #2 inhaler 12/10/19 [Rx] Potassium Chloride [Klor-Con M20] 20 meq PO DAILY 30 Days #30 12/10/19 [Rx] Ubidecarenone/Vitamin E [Co Q-10 50 MG Softgel] 1 tab PO DAILY 30 Days #30 12/10/19 [Rx] atorvaSTATin Calcium [Atorvastatin Calcium] 60 mg PO DAILY 30 Days #30 12/10/19 [Rx] carvediloL [Carvedilol] 6.25 mg PO BID 30 Days #30 12/10/19 [Rx] hydroCHLOROthiazide [Hydrochlorothiazide] 25 mg PO DAILY 30 Days #30 12/10/19 [Rx] lisinopriL [Lisinopril] 40 mg PO DAILY 30 Days #30 tablet 12/10/19 [Rx] metFORMIN [Glucophage] 850 mg PO BID 30 Days #30 12/10/19 [Rx] Sulfamethoxazole/Trimethoprim [Bactrim Ds Tablet] 1 each PO BID 10 Days #20 tablet 03/23/20 [Rx] cephALEXin [Keflex] 500 mg PO Q6H 10 Days #40 cap 03/23/20 [Rx] cephALEXin [Keflex] 500 mg PO Q6HR 10 Days #40 cap 03/23/20 [Rx] Past Medical History - Past Health History Medical/Surgical History: Denies Medical/Surgical History HEENT History: Reports: Other (See Below) Other HEENT History: broken nose, sinus issues Cardiovascular History: Reports: High Cholesterol, Hypertension, [place] Respiratory History: Reports: Asthma, Pneumonia, Recurrent Gastrointestinal History: Reports: None Genitourinary History: Reports: None Musculoskeletal History: Reports: Arthritis, Back Pain, Chronic, Fracture Other Musculoskeletal History: Chronic pain Neurological History: Reports: Concussion, Neuropathy, Diabetic Psychiatric History: Reports: None Other Psychiatric History: "Learning disabilities" Endocrine/Metabolic History: Reports: Diabetes, Type II Hematologic History: Reports: None Immunologic History: Reports: None Oncologic (Cancer) History: Reports: None Dermatologic History: Reports: Cellulitis - Infectious Disease History Infectious Disease History: Reports: Chicken Pox, Other (See Below) Other Infectious Disease History: MRSA - Past Surgical History Head Surgeries/Procedures: Reports: None HEENT Surgical History: Reports: None Cardiovascular Surgical History: Reports: Vascular Surgery Respiratory Surgical History: Reports: None GI Surgical History: Reports: None Male Surgical History: Reports: Vasectomy Endocrine Surgical History: Reports: None Neurological Surgical History: Reports: None Musculoskeletal Surgical History: Reports: Other (See Below) Other Musculoskeletal Surgeries/Procedures:: Hx of 32 sugeries, titanium in bilateral knees Oncologic Surgical History: Reports: None Dermatological Surgical History: Reports: None Social & Family History - Family History Family Medical History: No Pertinent Family History - Caffeine Use Caffeine Use: Reports: Coffee Other Caffeine Use: 1 cup every other day - Recreational Drug Use Recreational Drug Use: No Review of Systems - Review of Systems Review Of Systems: See Below Constitutional: Reports: No Symptoms Eyes: Reports: No Symptoms Nose: Reports: No Symptoms Mouth/Throat: Reports: No Symptoms Respiratory: Reports: No Symptoms Cardiovascular: Reports: No Symptoms Musculoskeletal: Reports: Other (Per HPI) Neurological: Reports: No Symptoms ED EXAM, GENERAL - Physical Exam Exam: See Below Free Text/Narrative:: General Appearance: No acute distress, appears comfortable Skin: No rash HEENT: Normocephalic/atraumatic, sclera anicteric, mucous membranes moist Neck: Normal range of motion Back: Normal Musculoskeletal: Tender faintly erythematous swelling of the right olecranon bursa with focal point of maximum fluctuance. There is a very faint erythema there is no limitation or pain with elbow flexion or extension no crepitus no significant skin discoloration Neurologic: Awake, alert, no obvious deficits, moving all extremities Psychiatric: Appropriate, cooperative ED TRAUMA EXTREMITY PROCEDURES - I&D Progress/Comments: After verbal consent was obtained the right elbow olecranon was scrubbed with ch lorhexidine 1 cc of 1% lidocaine with epinephrine was injected for local anesthetic and an 18-gauge needle was inserted into the bursa patient tolerated the procedure well but no significant fluid could be aspirated. There were no immediate complications Course - Vital Signs Last Recorded V/S: Last Vital Signs Temp 97.8 F 03/23/20 23:25 Pulse 90 03/23/20 23:25 Resp 16 03/23/20 23:25 BP 110/81 03/23/20 23:25 Pulse Ox 95 03/23/20 23:25 - Orders/Labs/Meds Meds: Medications Discontinued Medications Generic Name Dose Route Start Last Admin Trade Name Freq PRN Reason Stop Dose Admin Cephalexin 500 mg 03/23/20 23:49 Keflex PO 03/23/20 23:50 ONETIME ONE Lidocaine/Epinephrine 20 ml 03/23/20 23:44 Xylocaine 1% With Epinephrine 1:100,000 INJECT 03/23/20 23:45 ONETIME ONE Trimethoprim/Sulfamethoxazole 1 tab 03/23/20 23:50 Septra Ds PO 03/23/20 23:51 ONETIME ONE Departure - Departure Time of Disposition: 00:01 Disposition: Home, Self-Care 01 Condition: Good Clinical Impression: Septic bursitis of elbow - Discharge Information *PRESCRIPTION DRUG MONITORING PROGRAM REVIEWED*: Not Applicable *COPY OF PRESCRIPTION DRUG MONITORING REPORT IN PATIENT DOMENICO: Not Applicable Prescriptions: Sulfamethoxazole/Trimethoprim [Bactrim Ds Tablet] 1 each PO BID 10 Days #20 tablet cephALEXin [Keflex] 500 mg PO Q6HR 10 Days #40 cap cephALEXin [Keflex] 500 mg PO Q6H 10 Days #40 cap Referrals: PCP,Not In Area [Primary Care Provider] - Forms: ED Department Discharge Sepsis Event Note (ED) - Evaluation Sepsis Screening Result: No Definite Risk - Focused Exam Vital Signs: Vital Signs Temp Pulse Resp BP Pulse Ox 03/23/20 23:25 97.8 F 90 16 110/81 95 - Assessment/Plan Assessment:: 54-year-old male presenting with septic bursitis no sign of septic arthritis. Drainage with an 18-gauge needle done as documented patient without recent antibiotics or allergies. Will cover with Bactrim Keflex strict return precaution discussed and understood no sign of necrotizing infection. No signs of sepsis patient otherwise looks well.
[2020-03-24 02:07] VITALS: BP 131/80; PULSE 18
== END 2020-03-24 00:15 | disposition home or self-care (01) ==
LOC: MW.ED 23:14
DX: M71.121 Other infective bursitis, right elbow (principal); E78.00 Pure hypercholesterolemia, unspecified; I10 Essential (primary) hypertension; I25.2 Old myocardial infarction; J45.909 Unspecified asthma, uncomplicated; M19.90 Unspecified osteoarthritis, unspecified site; E11.40 Type 2 diabetes mellitus with diabetic neuropathy, unspecified; Z79.82 Long term (current) use of aspirin; Z79.02 Long term (current) use of antithrombotics/antiplatelets; Z79.4 Long term (current) use of insulin; Z79.899 Other long term (current) drug therapy
CPT/HCPCS: 20605; 99283; A9270; 23931

== ENCOUNTER 2023-01-17 14:02 | Emergency (ER) | payer MEDICARE, MEDICAID ==
[2023-01-17 16:53] VITALS: BP 142/98; PULSE 94
== END 2023-01-17 16:54 | disposition home or self-care (01) ==
LOC: MW.ED 14:02
DX: R07.89 Other chest pain (principal); I10 Essential (primary) hypertension; E11.9 Type 2 diabetes mellitus without complications; Z79.899 Other long term (current) drug therapy
CPT/HCPCS: 71101-26-LT; 71101-LT; 93005; 93010; 99283; 99285

== ENCOUNTER 2023-02-26 19:25 | Observation (INO) | payer MEDICAID, MEDICARE ==
[2023-02-26 19:53] LABS: BASOPHILS ABSOLUTE AUTO 0.03 K/uL (0.00-0.20); BASOPHILS PERCENT AUTO 0.2 % (0.0-1.0); EOSINOPHILS ABSOLUTE AUTO 1.05 K/uL (0.00-0.45); EOSINOPHILS PERCENT AUTO 8.2 % (0.0-6.0); HEMATOCRIT 43.5 % (42.0-52.0); HEMOGLOBIN 14.4 g/dL (14.0-18.0); IMMATURE GRAN ABSOLUTE AUTO 0.06 K/uL (0.00-0.05); IMMATURE GRAN PERCENT AUTO 0.5 % (0.0-0.4); LYMPHOCYTES PERCENT AUTO 19.6 % (24.0-44.0); MEAN CORPUSCULAR HEMOGLOBIN 30.3 pg (28.0-32.0); MEAN CORPUSCULAR HGB CONC 33.1 g/dL (32.0-36.0); MEAN CORPUSCULAR VOLUME 91.6 fL (83.0-99.0); MEAN PLATELET VOLUME 10.5 fL (9.4-12.4); MONOCYTES PERCENT AUTO 6.3 % (0.0-8.0); NEUTROPHILS ABSOLUTE AUTO 8.33 K/uL (1.80-7.70); NEUTROPHILS PERCENT AUTO 65.2 % (41.0-71.0); PLATELET COUNT,PLT 233 K/uL (150-400); RED BLOOD CELL COUNT 4.75 M/uL (4.52-5.90); WHITE BLOOD CELL COUNT,WBC 12.77 K/uL (3.9-11.3)
[2023-02-26] MEDS ORDERED: Sodium Chloride 0.9% 1,000 ML IV ONE ×2 (19:58→23:19)
[2023-02-26] MEDS ORDERED: Ondansetron 4 MG/2 ML SDV IVPUSH ONE (19:59)
[2023-02-26] MEDS ORDERED: Meclizine 25 MG Tab PO ONE (19:59)
[2023-02-26] MEDS ORDERED: Morphine 4 MG/ML Syringe IVPUSH ONE ×2 (19:59→21:48)
[2023-02-26 20:14] LABS: INR 1.01 (0.86-1.11); PTT,PARTIAL THROMBOPLSTIN TIME 33.6 SEC (23.9-30.7)
[2023-02-26 20:21] LABS: A/G RATIO 1.2 (0.9-1.6); ALANINE AMINOTRANSFERASE,ALT 28 IU/L (14-63); ALBUMIN 3.8 g/dL (3.4-5.0); ALKALINE PHOSPHATASE 85 U/L (46-116); ASPARTATE AMNIOTRANSFERASE,AST 17 IU/L (15-37); BILIRUBIN TOTAL 0.7 mg/dL (0.2-1.0); BLOOD UREA NITROGEN,BUN 14 mg/dL (7.0-18.0); CALCIUM 8.1 mg/dL (8.5-10.1); CARBON DIOXIDE,CO2 23.3 mmol/L (21.0-32.0); CHLORIDE,CL 107 mmol/L (98-107); CREATININE 1.8 mg/dL (0.8-1.3); EST CRCL DRUG DOSING (CG) 44.19 mL/min; ETHANOL BLOOD MEDICAL <3 mg/dL; GLUCOSE RANDOM 139 mg/dL (74-106); LIPASE 11 U/L (16-77); MAGNESIUM 1.2 mg/dL (1.8-2.4); POTASSIUM,K 5.1 mmol/L (3.5-5.1); PROTEIN TOTAL,TP 7.1 g/dL (6.4-8.2); SODIUM,NA 140 mmol/L (136-148)
[2023-02-26 20:23] LABS: ESTIMATED GFR 43 mL/min (>60)
[2023-02-26] MEDS ORDERED: Magnesium Sulfate/Water 2 GM in Premix Bag 1 BAG IV ONE (22:37)
[2023-02-26] MEDS ORDERED: oxyCODONE 5 MG Tab PO PRN (22:58)
[2023-02-26] MEDS ORDERED: Formoterol/Mometasone 100-5 MCG 8.8 GM Inhaler INH PRN (22:58)
[2023-02-27] MEDS ORDERED: 50% Dextrose in Water 50 ML Syringe IVPUSH PRN (03:04)
[2023-02-27] MEDS ORDERED: Glucagon,Human Recombinant 1 MG Vial IM PRN (03:04)
[2023-02-27] MEDS: Gabapentin 800 MG Tab PO SCH ×3 (06:06→21:29)
[2023-02-27 06:26] LABS: BASOPHILS ABSOLUTE AUTO 0.04 K/uL (0.00-0.20); BASOPHILS PERCENT AUTO 0.3 % (0.0-1.0); EOSINOPHILS ABSOLUTE AUTO 0.88 K/uL (0.00-0.45); EOSINOPHILS PERCENT AUTO 7.7 % (0.0-6.0); HEMATOCRIT 39.7 % (42.0-52.0); HEMOGLOBIN 13.1 g/dL (14.0-18.0); IMMATURE GRAN ABSOLUTE AUTO 0.05 K/uL (0.00-0.05); IMMATURE GRAN PERCENT AUTO 0.4 % (0.0-0.4); LYMPHOCYTES ABSOLUTE AUTO 2.91 K/uL (1.00-4.80); LYMPHOCYTES PERCENT AUTO 25.3 % (24.0-44.0); MEAN CORPUSCULAR HEMOGLOBIN 30.9 pg (28.0-32.0); MEAN CORPUSCULAR VOLUME 93.6 fL (83.0-99.0); MEAN PLATELET VOLUME 10.7 fL (9.4-12.4); MONOCYTES ABSOLUTE AUTO 1.12 K/uL (0.00-0.80); MONOCYTES PERCENT AUTO 9.8 % (0.0-8.0); NEUTROPHILS ABSOLUTE AUTO 6.48 K/uL (1.80-7.70); NEUTROPHILS PERCENT AUTO 56.5 % (41.0-71.0); PLATELET COUNT,PLT 186 K/uL (150-400); RED BLOOD CELL COUNT 4.24 M/uL (4.52-5.90); WHITE BLOOD CELL COUNT,WBC 11.48 K/uL (3.9-11.3)
[2023-02-27 06:52] LABS: CALCIUM 7.7 mg/dL (8.5-10.1); CARBON DIOXIDE,CO2 22.8 mmol/L (21.0-32.0); CREATININE 1.9 mg/dL (0.8-1.3); EST CRCL DRUG DOSING (CG) 41.86 mL/min; POTASSIUM,K 5.8 mmol/L (3.5-5.1)
[2023-02-27] MEDS: Insulin Aspart 100 Units/ML 3 ML Pen SUBCUT SCH ×3 (07:58→17:25)
[2023-02-27] MEDS ORDERED: OMEGA PO SCH (09:00)
[2023-02-27] MEDS ORDERED: DHA PO SCH (09:00)
[2023-02-27] MEDS ORDERED: KRILL OIL PO SCH (09:00)
[2023-02-27] MEDS ORDERED: [UNRECOGNIZED DRUG - OTHER] PO SCH (09:00)
[2023-02-27] MEDS: atorvaSTATin 40 MG Tab PO SCH (09:26)
[2023-02-27] MEDS: Aspirin 325 MG Tab.EC PO SCH (09:27)
[2023-02-27] MEDS: Clopidogrel 75 MG Tab PO SCH (09:27)
[2023-02-27] MEDS ORDERED: Sodium Chloride 0.9% 500 ML IV SCH (09:30)
[2023-02-27] MEDS ORDERED: Gadobenate Dimeglumine 529 MG/ML 20 ML SDV IVPUSH STA (10:04)
[2023-02-27] MEDS: Fish Oil/Omega-3 Fatty Acids 1 Gm Cap PO SCH (10:44)
[2023-02-27] MEDS ORDERED: Acetaminophen/oxyCODONE 325-5 MG Tab PO PRN (12:36)
[2023-02-27] MEDS ORDERED: OXYCODONE MYRISTATE 18 MG PO SCH (12:45)
[2023-02-27] MEDS: oxyCODONE ER 10 MG TAB.ER PO SCH ×2 (15:29→21:13)
[2023-02-27] MEDS: Formoterol/Mometasone 200-5 MCG 8.8 GM Inhaler INH SCH (21:13)
[2023-02-28] MEDS ORDERED: METHYLPHENIDATE HCL 54 MG PO SCH (05:00)
[2023-02-28] MEDS: Gabapentin 800 MG Tab PO SCH (05:12)
[2023-02-28] MEDS: Insulin Aspart 100 Units/ML 3 ML Pen SUBCUT SCH (06:36)
[2023-02-28 08:16] VITALS: PULSE 68
[2023-02-28] MEDS: oxyCODONE ER 10 MG TAB.ER PO SCH (08:21)
[2023-02-28] MEDS: Clopidogrel 75 MG Tab PO SCH (08:22)
[2023-02-28] MEDS: atorvaSTATin 40 MG Tab PO SCH (08:22)
[2023-02-28] MEDS: Fish Oil/Omega-3 Fatty Acids 1 Gm Cap PO SCH (08:22)
[2023-02-28] MEDS: Aspirin 325 MG Tab.EC PO SCH (08:23)
[2023-02-28] MEDS: Formoterol/Mometasone 200-5 MCG 8.8 GM Inhaler INH SCH (08:27)
[2023-02-28] MEDS ORDERED: Carvedilol 12.5 MG Tab PO SCH (09:00)
[2023-02-28] MEDS ORDERED: Apixaban 5 MG Tab PO SCH (09:00)
[2023-02-28 09:19] VITALS: BP 154/85
== END 2023-02-28 11:15 | disposition home or self-care (01) ==
LOC: MW.ED 19:25 → MW.MS 22:59
PROVIDERS: ADMIT Internal Medicine; ATTEND Internal Medicine
DX: R42 Dizziness and giddiness (principal); R07.89 Other chest pain; M25.512 Pain in left shoulder; G89.29 Other chronic pain; E86.0 Dehydration; I25.10 Atherosclerotic heart disease of native coronary artery without angina pectoris; E11.65 Type 2 diabetes mellitus with hyperglycemia; I25.2 Old myocardial infarction; I10 Essential (primary) hypertension; E78.00 Pure hypercholesterolemia, unspecified; M54.9 Dorsalgia, unspecified; F90.9 Attention-deficit hyperactivity disorder, unspecified type; F17.210 Nicotine dependence, cigarettes, uncomplicated; Z20.822 Contact with and (suspected) exposure to COVID-19; Z79.4 Long term (current) use of insulin; Z79.82 Long term (current) use of aspirin; Z79.01 Long term (current) use of anticoagulants; Z79.84 Long term (current) use of oral hypoglycemic drugs; Z79.891 Long term (current) use of opiate analgesic
CPT/HCPCS: 36415; 70450; 70553; 71045; 73030; 80048; 80053; 80307; 82947; 83690; 83735; 84484; 85025; 85610; 85730; 93005; 96361; 96365; 96375; 97163; 99285; A9270; A9577; J1815; J2270; J2405; J3475; J7030; J7040; U0002; 93010; 99284; G0378